=== PATIENT | female | born 1955 | race Caucasian/White ===

== ENCOUNTER → 2021-06-08 12:38 | Outpatient (BNVA) | payer OTHER, SELFPAY | PROVIDERS: PCP Internal Medicine; Referring Provider Internal Medicine; Visit Provider Internal Medicine | DX: I25.10 Atherosclerotic heart disease of native coronary artery without angina pectoris (principal); E78.5 Hyperlipidemia, unspecified; R03.0 Elevated blood-pressure reading, without diagnosis of hypertension; F17.200 Nicotine dependence, unspecified, uncomplicated | CPT/HCPCS: 93005; 99212 ==

== ENCOUNTER 2022-06-18 05:20 | Emergency (ER) | payer OTHER, SELFPAY ==
[2022-06-18 05:29] VITALS: BP 156/54; PULSE 74; RESP 16; TEMP 36.5; O2SAT 98; BMI 21.7
[2022-06-18 07:29] VITALS: BP 154/50; PULSE 70; RESP 18; O2SAT 98
--- NOTE | 2022-06-18 07:35 | ED_ITS ---
HPI - General Adult General Chief complaint: Ear Problems Stated complaint: ear infection Time Seen by Provider: 06/18/22 07:02 Source: patient Mode of arrival: ambulatory History of Present Illness HPI narrative: 66-year-old female with presentation for right shoulder /base of neck pain and patient states that she rests on her right arm and has not been very mobile for the past 2 weeks as she was recently ill. She denies that this pain is been associated with any falls, fevers, chills, difficulty breathing or chest pain / palpitations. In addition, she denies any ear pain or throat pain. Related Data Home Medications Medication Instructions Recorded Confirmed aspirin 81 mg chewable tablet 81 mg PO DAILY 06/08/21 06/08/21 levothyroxine 75 mcg tablet 75 mcg PO DAILY 06/08/21 06/08/21 (Euthyrox) venlafaxine 225 mg tablet,extended 225 mg PO DAILY 06/08/21 06/08/21 release 24 hr zolpidem 5 mg tablet 5 mg PO BEDTIME PRN 06/08/21 06/08/21 Previous Rx's Medication Instructions Recorded ezetimibe 10 mg tablet 10 mg PO DAILY 90 days #90 tabs 03/27/21 metoprolol succinate 25 mg 25 mg PO DAILY 90 days #90 tabs 08/14/21 tablet,extended release 24 hr atorvastatin 80 mg tablet 80 mg PO DAILY #90 caps 12/28/21 cyclobenzaprine 5 mg tablet 5 mg PO BEDTIME PRN muscle spasm 06/18/22 #3 tabs Allergies Allergy/AdvReac Type Severity Reaction Status Date / Time No Known Allergies Allergy Verified 06/08/21 12:55 Review of Systems Review of Systems: Pertinent positives and negatives as stated in HPI 10 point review of systems otherwise negative. [facility] Past Medical History Source: nursing notes reviewed Medical History Atherosclerotic cardiovascular disease Smoking Surgical History H/O heart artery stent Family History Family History Father No problems noted. Mother No problems noted. Unknown Diabetes Social History Social History Alcohol intake: never Patient Tobacco Use Status: Current everyday Tobacco user Cigarettes Per Day: 10 Years Smoked: 30 +/- Use of substances other than those prescribed or required for medical reasons: No Advance Directives: No Advance Directives Information Provided: No Physical Exam ED Vital Signs: Vital Signs - 24 hr 06/18/22 05:29 06/18/22 07:29 Temperature 97.7 F Pulse Rate 74 70 Respiratory Rate 16 18 Blood Pressure 156/54 H 154/50 H Pulse Oximetry 98 98 Oxygen Delivery Method Room Air Room Air BMI result Body Mass Index 21.7 VITAL SIGNS: Reviewed. GENERAL: Well developed, well nourished, in no acute distress. HEAD: Normocephalic/atraumatic EYES: PERRLA, EOMI EARS: Ext canals without abnormality, TMs non-bulging and non-erythematous NOSE: Nares patent bilateral OROPHARYNX: no oral lesions noted, posterior pharynx clear and non-erythematous without noted tonsillar enlargement/erythema/exudates NECK: Supple, no adenopathy,No midline cervical spine tenderness, there is obvious muscle spasm as the right trapezius meets the right base of the neck LUNGS: Normal breath sounds. No adventitious sounds or accessory muscle use. SpO2<98>; CHEST WALL: No tenderness to palpation/ crepitus/deformity noted CARDIOVASCULAR: Regular rate and rhythm without noted murmurs ABDOMEN: Soft, non-tender, non-distended with bowel sounds. MUSCULOSKELETAL: No tenderness, deformities, or effusions noted on gross inspection, otherwise full range of motion at the right shoulder. EXTREMITIES: No cyanosis, clubbing or edema. SKIN: Inspection of the skin reveals no rashes NEUROLOGIC: Alert and oriented x 4. Strength and sensation to light touch were grossly intact x 4. Course Course Course Narrative: 66-year-old female with history and clinical presentation most consistent with muscle spasm. This is an atraumatic pain without evidence of head/ neck/chest wall pathology, no evidence to suggest underlying infection and no evidence to suggest a COPD/ bronchitis/cardiac etiology. Patient was provided with medications for her discomfort and discharged home in stable condition with instructions to follow-up with her primary care provider. Discharge Plan Discharge Clinical Impression: Muscle spasm, Musculoskeletal pain Patient Disposition: Home, Self-Care Instructions: Musculoskeletal Pain (ED), Muscle Spasm (ED) Additional Instructions: 1. Tylenol 1000 mg, orally, every 6 hours as needed for pain control. Do not exceed 4000 mg within 24 hours. 2. Recommend [id number] lidocaine patch, apply to area of maximal tenderness as directed on the outside packaging. 3. Continue to move your shoulder and neck gently to prevent further spasming and stiffness. 4. Follow-up with your primary care provider in the next 1-2 days for re- evaluation. Return to the ER for worsening symptoms. Prescriptions: New cyclobenzaprine 5 mg tablet 5 mg PO BEDTIME PRN (Reason: muscle spasm) Qty: 3 0RF No Action ezetimibe 10 mg tablet 10 mg PO DAILY 90 Days Qty: 90 4RF metoprolol succinate 25 mg tablet extended release 24 hr 25 mg PO DAILY 90 Days Qty: 90 3RF atorvastatin 80 mg tablet 80 mg PO DAILY Qty: 90 3RF zolpidem 5 mg tablet 5 mg PO BEDTIME PRN venlafaxine 225 mg tablet extended release 24hr 225 mg PO DAILY levothyroxine [Euthyrox] 75 mcg tablet 75 mcg PO DAILY aspirin 81 mg tablet,chewable 81 mg PO DAILY
[2022-06-18] MEDS: Acetaminophen 325 MG TABLET 975 MG PO (08:01)
[2022-06-18] MEDS: Ibuprofen 400 MG TABLET PO (08:02)
[2022-06-18] MEDS: Lidocaine 4 % Patch ADH..PATCH 1 PATCH TRANSDERMA (08:02)
== END 2022-06-18 08:06 | disposition home or self-care (01) ==
PROVIDERS: Emergency Provider Student in an Organized Health Care Education/Training Program
DX: M62.838 Other muscle spasm (principal); M79.18 Myalgia, other site; M54.2 Cervicalgia; E78.5 Hyperlipidemia, unspecified; F17.210 Nicotine dependence, cigarettes, uncomplicated; Z79.82 Long term (current) use of aspirin; Z79.02 Long term (current) use of antithrombotics/antiplatelets; Z79.899 Other long term (current) drug therapy
CPT/HCPCS: 99283; 99284

== ENCOUNTER → 2022-07-25 14:41 | Outpatient (BNVA) | payer OTHER, SELFPAY | PROVIDERS: PCP Internal Medicine; Visit Provider Internal Medicine | DX: I25.10 Atherosclerotic heart disease of native coronary artery without angina pectoris (principal); E78.5 Hyperlipidemia, unspecified; F17.210 Nicotine dependence, cigarettes, uncomplicated | CPT/HCPCS: 93005; 99212 ==

== ENCOUNTER → 2022-07-30 14:36 | Outpatient (REF) | payer OTHER, SELFPAY ==
--- NOTE | 2022-07-30 14:38 | CA_ITS ---
Transthoracic Echocardiogram Patient (Last, First, Middle): Selin Malagon, Gender: Female Date of : 1955 Age: 66 Procedure Date: 07/30/2022 Procedure Type: Transthoracic Echocardiogram Location: OP Height: 345.44 cm Weight: 63.05 kg BSA: 2.89 m2 Heart Rate: bpm BP: 158 / 64 mmHg Parking Regulation Enforcement Officer: ELIZABETH Referring MD: Juan Jose Jones MD Symptoms: I25.10 - Atherosclerotic heart disease of [place] coronary artery without... Study Quality: Adequate ECG Rhythm: Sinus Conclusions: - The left ventricular systolic function is normal. The calculated ejection fraction is 57% by biplane method. - Evidence suggests grade II (moderate) diastolic dysfunction. - The basal inferior and basal inferoseptal segments are hypokinetic. - Aortic valve sclerosis but no significant stenosis. - There is mild mitral annular calcification. Findings Left Ventricle Normal left ventricular cavity size. The left ventricular systolic function is normal. The calculated ejection fraction is 57% by biplane method. There is evidence of regional wall motion abnormalities. E/E prime ratio is between 8 and 15 consistent with indeterminate filling pressures. Evidence suggests grade II (moderate) diastolic dysfunction. There is mild septal asymmetric hypertrophy. LV peak GLS -17.7%. Wall Motion Rest Echo Findings The basal inferior and basal inferoseptal segments are hypokinetic. Right Ventricle Mildly increased right ventricular cavity size. There is normal right ventricular systolic function. Atria The left atrium is moderately dilated. The right atrium is normal in size. Aortic Valve There is a normal trileaflet aortic valve. There is mild calcification of the aortic valve. There is no aortic valve regurgitation. No significant aortic stenosis. Mitral Valve There is mild mitral annular calcification. There is mild mitral valve regurgitation. There is no mitral valve stenosis. Pulmonic Valve The pulmonic valve is likely normal. Tricuspid Valve Normal tricuspid valve structure. There is mild tricuspid valve regurgitation. There is no evidence of pulmonary hypertension. Great Vessels The asc aorta and aortic arch are normal in size. Venous The inferior vena cava is normal in size and collapses greater than 50% with inspiration. Pericardium/Pleural There is no evidence of pericardial effusion. Prior Study Comparison Changes noted compared to prior study dated: 06/03/2020. Progression diastolic dysfunction. Increase in left atrial size. Measurements 2D Linear Measurements IVSd: 1.10 0.6-0.9/0.6-1.0 cm LVIDd: 4.67 3.9-5.3/4.2-5.9 cm LVIDd Index: 1.61 2.4-3.2/2.2-3.1 cm/m2 LVIDs: 3.31 2.0-3.6 cm LVPWd: 1.00 0.7-1.1 cm LA Diam: 3.90 2.7-3.8/3.0-4.0 cm LAIDs Index: 1.35 1.5-2.3 cm/m2 LV Mass: 216.06 67-162/88-224 g LV Mass Index: 74.65 43-95/49-115 g/m2 LVOT Diam: 2.00 3.0+(-)1.3 cm 2D Systolic Function EF 4C: 54.00 >55% EF 2C: 58.50 >55% EF BiP: 57.10 >55% Mitral Valve MV Pk E: 1.16 MV PK A: 0.95 MV Decel Time: 231.00 E/A: 1.20 E'Lateral: 9.03 E'Medial: 6.74 E/E' Med: 17.20 E/E' Lat: 12.80 PHT: 68.00 MVA PHT: 3.24 Decel [place]: 5.01 Aortic Valve AoV Pk Dean: 2.19 AoV Mn Dean: 1.50 AoV VTI: 0.53 AoV Pk Grad: 19.00 Aov Mn Grad: 10.00 KANDACE Cont.VTI: 1.84 LVOT LVOT Pk Dean: 1.40 LVOT Mn Dean: 0.87 LVOT VTI: 0.31 LVOT Pk Grad: 8.00 LVOT Mn Grad: 3.00 LVOT Diam: 2.00 LVOT Area: 3.14 Diastolic Function MV Pk E: 1.16 MV Pk A: 0.95 E/A: 1.20 E'Medial: 6.74 E/E' Med: 17.20 E' Laterial: 9.03 E/E' Lat: 12.80 Right Ventricle TAPSE (mm): 28.80 TVS' Dean: 12.40 Tricuspid Valve TR Pk Dean: 2.72 TR Pk Grad: 30.00 RA Press: 3.00 RVSP: 33.00 Great Vessels Aorta Sinus of Valsalva: 2.61 2.0-3.[address] [place]: 2.10 1.7-3.4 cm Ao Asc: 2.60 2.1-3.4 cm Ao Arch: 2.80 Updated in Other Vendor System with Status of Final Juan Jose Jones MD electronically signed on 07/31/2022 4:13:55 PM with status of Final
== END ==
LOC: HO.CARD 14:36
PROVIDERS: Visit Provider Internal Medicine
DX: I25.10 Atherosclerotic heart disease of native coronary artery without angina pectoris (principal)
CPT/HCPCS: 93306; 93356

== ENCOUNTER → 2022-08-07 09:43 | Outpatient (REF) | payer OTHER, SELFPAY ==
--- NOTE | ~2022-08-07 | NM_ITS ---
Lexiscan Myocardial perfusion study Indication: Coronary artery disease, assess for ischemia Technique: The patient was brought in for a Lexiscan perfusion study on 08/07/2022 and was injected 0.4 mg of Lexiscan intravenously. Within a minute of this injection 25 mCi of sestamibi was given intravenously. Images were obtained using the SPECT gamma camera interlaced with the gating device. Images were obtained in supine position. Resting perfusion study was performed on 08/08/2022. Patient was administered 25 mCi of sestamibi intravenously at rest. Images were then obtained in supine position. Images were processed with the software and compared side to side in short axis, horizontal long axis and vertical long axis views. Total DLP 72mGy-cm. Findings: Raw acquisition reviewed. The stress perfusion study showed mildly diminished tracer uptake along the inferior wall. With CT attenuation correction, there is significant improvement suggestive of diaphragmatic attenuation artifact. The gated study shows normal LV systolic function with calculated LVEF of 54%. LV cavity is normal in size. The gated study shows normal wall thickening and contraction of segments. Resting study shows no significant perfusion abnormality. Gating at rest reveals normal wall motion with ejection fraction at 55%. The findings are consistent with mild reversible inferior defect possibly from diaphragmatic attenuation artifact. Less likely ischemia. NM/NM anthony perf SPECT rest & str Impression: 1. Myocardial perfusion imaging study shows no clear evidence of any ischemia or infarction. Mild reversible inferior defect suspected to be from diaphragmatic attenuation artifact. 2. Gated LVEF is 54% during stress and 55% during rest. 3. Transient ischemic dilatation not present. EKG component of the test reported separately.
--- NOTE | 2022-08-07 09:47 | CA_ITS ---
Acquisition Time: 2022-08-07 10:04:19 Total Exercise Time: 00:02:00 Test Indications: CP Medications: SEE CHART Protocol: LEXISCAN Max HR: 114 BPM 73% of Pred: 156 BPM Max BP: 132/068 mmHG Max Work Load: 1.0 METS Pharmacological stress test with Lexiscan injection, while sitting and kicking her legs, with mild sob, no chest discomfort, without arrythmia, with normotensive response to injection, with nondiagnostic EKG for ischemia. Nuclear images pending. Test reviewed with Dr Mcdaniel. Referred By: Juan Jose Jones Overread By: ERIC SOSA
== END ==
LOC: HO.CARD 09:43
PROVIDERS: Visit Provider Internal Medicine
DX: I25.10 Atherosclerotic heart disease of native coronary artery without angina pectoris (principal)
CPT/HCPCS: 78452; 93017; A9500; J0280; J2785

== ENCOUNTER 2022-10-23 10:51 | Outpatient (REF) | payer MEDICARE, SELFPAY ==
--- NOTE | ~2022-10-23 | XR_ITS ---
EXAMINATION: XR CHEST 2 VIEWS CLINICAL INFORMATION: Shortness of breath. COMPARISON: Chest radiographs dated 05/29/2017. TECHNIQUE: Frontal and lateral views of the chest were obtained. FINDINGS: The heart, great vessels, pulmonary vasculature and mediastinum are normal. The lungs show no focal infiltrate, effusion or pneumothorax. There is mild right apical pleural thickening. There is no acute osseous abnormality. XR/XR chest 2V IMPRESSION: No active cardiopulmonary disease.
[2022-10-23 12:53] LABS: Mean Corpuscular HGB Conc 23.9 g/dl (31.0-35.0); PLT CLUMP 1; Red Blood Count 3.27 X10*6/uL (4.20-5.50); Red Cell Distribution Width 21.8 % (11.0-16.0)
[2022-10-23 12:57] LABS: B Type Natriuretic Peptide 84 pg/mL (<100)
[2022-10-23 13:21] LABS: Mean Corpuscular Volume 62.7 fL (80.0-98.0); NRBC Pct Auto 1.7 /100WBC (0.0-0.2)
[2022-10-23 13:24] LABS: Hemoglobin 4.9 g/dl (12.0-16.0); White Blood Count 4.8 X10*3/uL (4.8-10.8)
[2022-10-23 13:25] LABS: Hematocrit 20.5 % (37.0-47.0)
[2022-10-23 13:31] LABS: Alanine Aminotransferase 9 U/L (0-31); Alkaline Phosphatase 138 U/L (39-117); Anion Gap 13 (12-20); Aspartate Amino Transferase 16 U/L (5-31); Bilirubin Total 0.6 mg/dL (0.0-1.0); Blood Urea Nitrogen 11 mg/dL (9-16); Calcium 8.6 mg/dL (8.4-10.2); Carbon Dioxide 23 mmol/L (22-29); Chloride 110 mmol/L (96-108); Cholesterol 100 mg/dL; Estimated Glomerular Filt Rate > 60; Glucose Random 96 mg/dL (60-115); HDL Cholesterol 29 mg/dL; LDL Cholesterol Calculated 60 mg/dl; Potassium 4.7 mmol/L (3.3-5.1); Sodium 141 mmol/L (135-145); Total Protein 6.7 g/dL (6.5-8.0); Triglycerides 59 mg/dL
== END 2022-10-23 10:52 | disposition home or self-care (01) ==
LOC: HO.XRAY 10:51
PROVIDERS: PCP Internal Medicine; Referring Provider Internal Medicine; Visit Provider Internal Medicine
DX: R06.02 Shortness of breath (principal); I25.10 Atherosclerotic heart disease of native coronary artery without angina pectoris; I50.9 Heart failure, unspecified; E78.5 Hyperlipidemia, unspecified; F17.200 Nicotine dependence, unspecified, uncomplicated; Z71.6 Tobacco abuse counseling
CPT/HCPCS: 36415; 71046; 80053; 80061; 83880; 85027; 99212

== ENCOUNTER 2022-10-23 14:06 | Inpatient (IN) | payer MEDICARE, MEDICAID, SELFPAY ==
[2022-10-23] VITALS (10 sets, daily range): BP systolic 144–167; BP diastolic 40–72; PULSE 61–86; RESP 15–20; TEMP 36.4–37.2; O2SAT 97–100; BMI 22.8
--- NOTE | 2022-10-23 14:08 | ED.RECABL ---
HPI - Recheck/Abnormal Lab/Rx General Chief Complaint: Recheck/Abnormal Lab/Rx <Zuly Villanueva CNP - Last Filed: 10/23/22 14:16> Stated Complaint: Abnormal labs <Zuly Villanueva CNP - Last Filed: 10/23/22 14:16> Time Seen by Provider: 10/23/22 14:12 <Zuly Villanueva CNP - Last Filed: 10/23/22 14:16> Source: patient <Jonny Hollis DO - Last Filed: 10/23/22 14:58> Mode of arrival: ambulatory <Jonny Hollis DO - Last Filed: 10/23/22 14:58> Limitations: no limitations <Jonny Hollis DO - Last Filed: 10/23/22 14:58> History of Present Illness HPI narrative: 66 year old female presented to her PCP for weakness routine blood work done and showed she was profoundly anemic. She denies blood stools black stools. Denies having a blood transfusion in the past. She denies cough fever chills chest pain <Jonny Hollis DO - Last Filed: 10/23/22 14:58> MD complaint: other <Jonny Hollis DO - Last Filed: 10/23/22 14:58> Related Data Home Medications: Home Medications Medication Instructions Recorded Confirmed aspirin 81 mg chewable tablet 81 mg PO DAILY 06/08/21 10/23/22 levothyroxine 75 mcg tablet 75 mcg PO DAILY 06/08/21 10/23/22 (Euthyrox) venlafaxine 225 mg tablet,extended 225 mg PO DAILY 06/08/21 10/23/22 release 24 hr zolpidem 5 mg tablet 5 mg PO BEDTIME PRN 06/08/21 10/23/22 Previous Rx's Medication Instructions Recorded atorvastatin 80 mg tablet 80 mg PO DAILY #90 caps 12/28/21 cyclobenzaprine 5 mg tablet 5 mg PO BEDTIME PRN muscle spasm 06/18/22 #3 tabs ezetimibe 10 mg tablet 10 mg PO DAILY #90 tabs 07/02/22 metoprolol succinate 25 mg 25 mg PO DAILY #90 tabs 07/23/22 tablet,extended release 24 hr <Zuly Villanueva CNP - Last Filed: 10/23/22 14:16> Allergies/Adverse Reactions: Allergies Allergy/AdvReac Type Severity Reaction Status Date / Time No Known Allergies Allergy Verified 10/23/22 14:11 <Zuly Villanueva CNP - Last Filed: 10/23/22 14:16> Review of Systems Review of Systems: Review of systems: General: Weakness Patient denies any fever chills recent illness or falls Musculoskeletal: Denies back pain or body aches or other injuries HEENT: denies headache, runny nose, ear pain Respiratory: denies shortness of breath, cough Cardiovascular: no chest pain or palpitations : denies dysuria, frequency Abdomen: no nausea vomiting denies abdominal pain Extremities: no swelling, no pain Skin: no diaphoresis <Jonny Hollis DO - Last Filed: 10/23/22 14:58> Yes all other systems are reviewed and are negative <Jonny Hollis DO - Last Filed: 10/23/22 14:58> [facility] Past Medical History Medical History: Medical History Atherosclerotic cardiovascular disease Smoking <Zuly Villanueva CNP - Last Filed: 10/23/22 14:16> Surgical History: Surgical History H/O heart artery stent <Zuly Villanueva CNP - Last Filed: 10/23/22 14:16> Family History Family History: Family History Father No problems noted. Mother No problems noted. Unknown Diabetes <Zuly Villanueva CNP - Last Filed: 10/23/22 14:16> Social History Social History: Social History Alcohol intake: never Patient Tobacco Use Status: Current everyday Tobacco user Cigarettes Per Day: 10 Years Smoked: 30 +/- Advance Directives: No Advance Directives Information Provided: Yes <Zuly Villanueva CNP - Last Filed: 10/23/22 14:16> Physical Exam Vital Signs: Vital Signs: Last Vital Signs Temp 97.5 F 10/23/22 14:08 Pulse 86 10/23/22 14:08 Resp 18 10/23/22 14:08 BP 150/47 H 10/23/22 14:08 Pulse Ox 100 10/23/22 14:08 O2 Del Method 10/23/22 14:08 BMI result Body Mass Index 22.8 <Zuly Villanueva CNP - Last Filed: 10/23/22 14:16> Vital Signs: Last Vital Signs Temp 97.5 F 10/23/22 14:08 Pulse 86 10/23/22 14:08 Resp 18 10/23/22 14:08 BP 150/47 H 10/23/22 14:08 Pulse Ox 100 10/23/22 14:08 O2 Del Method 10/23/22 14:08 BMI result Body Mass Index 22.8 <Jonny Hollis DO - Last Filed: 10/23/22 14:58> General: Well-appearing well-nourished in no signs of distress HEENT: Normocephalic atraumatic Neck: No signs of JVD, no masses no tenderness or lymphadenopathy Cardiovascular: Regular rate and rhythm Respiratory: Clear to auscultation bilaterally Abdomen: Soft nontender no masses rectal exam performed guia negative customer quality engineer confirmed. Extremities: Normal pedal pulses no signs of edema Skin: Dry warm no rashes Back: No tenderness full ROM <Jonny Hollis DO - Last Filed: 10/23/22 14:58> Course Course Course Narrative: This is an RME: Additional HPI, ROS, PE not included below will be deferred to primary provider. Patient is a 66 year old female who presents to the emergency department for evaluation of abnormal labs. 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 Denies rectal bleeding, hematuria, vaginal bleeding, obvious sources of bleeding, denies anticoagulant usage. Denies any recent injury, fall, trauma. CBC revealing microcytic anemia hemoglobin 4.9, hematocrit 20.5, plt TNP. She does dose that she has been feeling weak over the past few months. Denies any past history of anemia or blood transfusions. 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 Hollis made aware of patient, labs; Type and screen, EKG, occult stool <Zuly Villanueva CNP - Last Filed: 10/23/22 14:16> Medications Administered Generic Name Dose Route Start Last Admin Trade Name Freq PRN Reason Stop Dose Admin Sodium Chloride 1,000 mls @ 999 mls/hr 10/23/22 14:15 10/23/22 14:50 Ns IV 10/23/22 15:15 999 mls/hr .Q1H1M MAIA Administration <Zuly Villanueva CNP - Last Filed: 10/23/22 14:16> Medications Administered Generic Name Dose Route Start Last Admin Trade Name Freq PRN Reason Stop Dose Admin Sodium Chloride 1,000 mls @ 999 mls/hr 10/23/22 14:15 10/23/22 14:50 Ns IV 10/23/22 15:15 999 mls/hr .Q1H1M MAIA Administration <Jonny Hollis DO - Last Filed: 10/23/22 14:58> Medical Decision Making Medical Decision Making [facility] Narrative: Concern for severe anemia Patient consented for blood transfusion I went over the risks and benefits she was agreeable. I type and crossed her for two units. <Jonny Hollis DO - Last Filed: 10/23/22 14:58> Differential Diagnosis Differential Diagnoses: The differential diagnosis associated with the presentation includes <Jonny Hollis DO - Last Filed: 10/23/22 14:58> Admission/Observation Consideration of admission/observation: Escalation of care including admission/observation considered <Jonny Hollis DO - Last Filed: 10/23/22 14:58> Consult Healthcare Provider Management of the patient was discussed with: Hospitalist <Jonny Hollis DO - Last Filed: 10/23/22 14:58> Dr. Carvalho <Jonny Hollis DO - Last Filed: 10/23/22 14:58> Lab Data [facility] Lab Attestation statement: I reviewed the patient's lab results. <Jonny Hollis DO - Last Filed: 10/23/22 14:58> Result Diagrams: 10/23/22 14:31 10/23/22 14:31 <Zuly Villanueva CNP - Last Filed: 10/23/22 14:16> Labs: Lab Results 10/23/22 10/23/22 10/23/22 Range/Units 14:31 14:31 14:31 WBC 5.2 (4.8-10.8) X10*3/uL RBC 3.05 L (4.20-5.50) X10*6/uL Hgb 4.6 L* (12.0-16.0) g/dl Hct 19.0 L* (37.0-47.0) % MCV 62.3 L (80.0-98.0) fL MCH 15.1 L (27.0-33.0) pg MCHC 24.2 L (31.0-35.0) g/dl RDW 21.5 H (11.0-16.0) % Plt Count 245 (160-400) X10*3/uL MPV 9.1 L (9.4-12.3) fL Immature Gran % (Auto) 0.4 (0.0-0.4) % Neut % (Auto) 51.3 (45-73) % Lymph % (Auto) 35.9 (20-40) % [place] % (Auto) 12.4 H (2-11) % Eos % (Auto) 0.0 (0-4) % Baso % (Auto) 0.0 (0-2) % Lymph # (Auto) 1.9 (1.2-4.9) X10*3/uL [place] # (Auto) 0.7 (0.1-1.2) X10*3/uL Eos # (Auto) 0.0 (0.0-0.4) X10*3/uL Baso # (Auto) 0.0 (0.0-0.2) X10*3/uL Abs Immat Gran (auto) 0.02 (0.00-0.03) X10*3/uL Absolute Neuts (auto) 2.7 (2.0-8.3) x10*3/uL Absolute Nucleated RBC 0.030 H (0.0-0.012) X10*3/uL Nucleated RBC % (auto) 0.6 H (0.0-0.2) /100WBC PT 12.8 (10.0-13.1) SEC INR 1.1 (0.9-1.1) Crossmatch See Detail <Zuly Villanueva, SERGIO - Last Filed: 10/23/22 14:16> Lab Results 10/23/22 10/23/22 10/23/22 Range/Units 14:31 14:31 14:31 WBC 5.2 (4.8-10.8) X10*3/uL RBC 3.05 L (4.20-5.50) X10*6/uL Hgb 4.6 L* (12.0-16.0) g/dl Hct 19.0 L* (37.0-47.0) % MCV 62.3 L (80.0-98.0) fL MCH 15.1 L (27.0-33.0) pg MCHC 24.2 L (31.0-35.0) g/dl RDW 21.5 H (11.0-16.0) % Plt Count 245 (160-400) X10*3/uL MPV 9.1 L (9.4-12.3) fL Immature Gran % (Auto) 0.4 (0.0-0.4) % Neut % (Auto) 51.3 (45-73) % Lymph % (Auto) 35.9 (20-40) % [place] % (Auto) 12.4 H (2-11) % Eos % (Auto) 0.0 (0-4) % Baso % (Auto) 0.0 (0-2) % Lymph # (Auto) 1.9 (1.2-4.9) X10*3/uL [place] # (Auto) 0.7 (0.1-1.2) X10*3/uL Eos # (Auto) 0.0 (0.0-0.4) X10*3/uL Baso # (Auto) 0.0 (0.0-0.2) X10*3/uL Abs Immat Gran (auto) 0.02 (0.00-0.03) X10*3/uL Absolute Neuts (auto) 2.7 (2.0-8.3) x10*3/uL Absolute Nucleated RBC 0.030 H (0.0-0.012) X10*3/uL Nucleated RBC % (auto) 0.6 H (0.0-0.2) /100WBC PT 12.8 (10.0-13.1) SEC INR 1.1 (0.9-1.1) Crossmatch See Detail <Jonny Hollis DO - Last Filed: 10/23/22 14:58> Independent Interpretation I performed an independent interpretation of an: EKG and Plain X-Ray <Jonny Hollis DO - Last Filed: 10/23/22 14:58> Interpretation: Rate 77 nsr normal intervals no signs of ischemia <Jonny Hollis DO - Last Filed: 10/23/22 14:58> Radiology Impression Discussion of test interpretation with radiology: I have reviewed the radiologist's reading. <Jonny Hollis DO - Last Filed: 10/23/22 14:58> Discharge Plan Discharge Clinical Impression: Anemia, Weakness <Zuly Villanueva CNP - Last Filed: 10/23/22 14:16> Patient Disposition: Admitted As Inpatient <Zuly Villanueva CNP - Last Filed: 10/23/22 14:16> Prescriptions: No Action atorvastatin 80 mg tablet 80 mg PO DAILY Qty: 90 3RF ezetimibe 10 mg tablet 10 mg PO DAILY Qty: 90 3RF metoprolol succinate 25 mg tablet extended release 24 hr 25 mg PO DAILY Qty: 90 1RF cyclobenzaprine 5 mg tablet 5 mg PO BEDTIME PRN (Reason: muscle spasm) Qty: 3 0RF zolpidem 5 mg tablet 5 mg PO BEDTIME PRN venlafaxine 225 mg tablet extended release 24hr 225 mg PO DAILY levothyroxine [Euthyrox] 75 mcg tablet 75 mcg PO DAILY aspirin 81 mg tablet,chewable 81 mg PO DAILY <Zuly Villanueva CNP - Last Filed: 10/23/22 14:16>
--- NOTE | 2022-10-23 14:10 | ECG_ITS ---
Test Reason : abnormal labs Blood Pressure : / mmHG Vent. Rate : 077 BPM Atrial Rate : 077 BPM P-R Int : 122 ms QRS Dur : 088 ms QT Int : 408 ms P-R-T Axes : 069 037 034 degrees QTc Int : 461 ms Normal sinus rhythm Nonspecific ST abnormality Abnormal ECG When compared with ECG of 25-JUN-2014 19:57, ST no longer elevated in Anterior leads Referred By: Zuly Villanueva Electronically Signed By:Lamont Mcdaniel
[2022-10-23 14:38] LABS: MANUAL DIFF FLAG NO
[2022-10-23 14:40] LABS: Imm Gran Abs Auto 0.02 X10*3/uL (0.00-0.03); Imm Gran Pct Auto 0.4 % (0.0-0.4); Lymphocytes Absolute Auto 1.9 X10*3/uL (1.2-4.9); Lymphocytes Percent Auto 35.9 % (20-40); Mean Corpuscular HGB Conc 24.2 g/dl (31.0-35.0); Mean Corpuscular Hemoglobin 15.1 pg (27.0-33.0); Mean Platelet Volume 9.1 fL (9.4-12.3); Monocytes Absolute Auto 0.7 X10*3/uL (0.1-1.2); Monocytes Percent Auto 12.4 % (2-11); NRBC Pct Auto 0.6 /100WBC (0.0-0.2); Neutrophils Absolute Auto 2.7 x10*3/uL (2.0-8.3); Neutrophils Percent Auto 51.3 % (45-73); Platelet Count 245 X10*3/uL (160-400); Red Blood Count 3.05 X10*6/uL (4.20-5.50); Red Cell Distribution Width 21.5 % (11.0-16.0); White Blood Count 5.2 X10*3/uL (4.8-10.8)
[2022-10-23 14:46] LABS: Hemoglobin 4.6 g/dl (12.0-16.0); INTERNATIONAL NORM RATIO 1.1 (0.9-1.1); Prothrombin Time 12.8 SEC (10.0-13.1)
[2022-10-23 14:47] LABS: Mean Corpuscular Volume 62.3 fL (80.0-98.0)
[2022-10-23] MEDS: 0.9 % Sodium Chloride 1,000 ML 999 ML IV (14:50)
[2022-10-23 15:12] LABS: Alanine Aminotransferase 10 U/L (0-31); Albumin Level 3.9 g/dL (3.5-5.0); Alkaline Phosphatase 135 U/L (39-117); Anion Gap 13 (12-20); Aspartate Amino Transferase 15 U/L (5-31); Bilirubin Direct 0.2 mg/dL (0.0-0.5); Bilirubin Total 0.5 mg/dL (0.0-1.0); Blood Urea Nitrogen 11 mg/dL (9-16); Calcium 8.6 mg/dL (8.4-10.2); Carbon Dioxide 22 mmol/L (22-29); Chloride 109 mmol/L (96-108); Estimated Glomerular Filt Rate > 60; Glucose Random 147 mg/dL (60-115); Lipase 22 U/L (8-78); Potassium 4.3 mmol/L (3.3-5.1); Sodium 140 mmol/L (135-145); Total Protein 6.6 g/dL (6.5-8.0)
--- NOTE | 2022-10-23 15:55 | P.HPHOSP_ITS ---
History of Present Illness Date of Service: 10/23/22 Attending physician on admission: Jeet Berry Chief Complaint: weakness 66 year old female with history of CAD s/p STEMI with LAD stenting in 2013, atherosclerosis, depression/anxiety/hypothyroidism, hypertension, hyperlipidemia presented to the ED earlier today from Cardiology office for evaluation of severe symptomatic anemia. The patient reports that for the last 3 months has been experiencing symptoms including weakness, fatigue, dyspnea on exertion, palpitations that has been significantly limiting her activities. There has also been some myalgia. She denies any bleeding episodes including melena, hematochezia, epistaxis, vaginal bleeding, or hematemesis. Her last colonoscopy was at age 52, 14 years ago, which she reports was benign. She has not had any recent blood work in the last year prior to that ordered this morning by Dr. Jones. H/H this a.m. 4.9/20.5 with MCV 62.7. Repeated in the ED with H/H 4.6/19.0% with MCV 60 2.3%. Vital signs stable. Renal function electrolyte levels normal. EKG showing NSR, rate [address] abnormality but no ST or depressions suggestive of acute ischemia. Chest x-ray appears negative for any acute cardiopulmonary abnormality upon my review. Patient be transfused 2 units packed red blood cells in the ED. She is also reporting URI symptoms including productive cough and right ear pain ongoing for 1 week. To be admitted for severe symptomatic anemia of unclear etiology. Review of Systems Review of Systems: General: No fevers, malaise, unintentional weight loss HEENT: No blurred vision, diplopia. No sore throat, nasal congestion, rhinorrhea, sinus pain, epistaxis. +right ear pain Cardiovascular: +palpitations. No chest pain or leg edema Respiratory: +sob, +stephenson, +cough. No wheezing GI: No abdominal pain, nausea, vomiting, diarrhea, constipation, melena, hematochezia : No dysuria, hematuria, increased urinary frequency, decreased urinary output MSK: No myalgia, back pain Neuro: No headaches, weakness, paresthesias Skin: No rashes or lesions [facility] Medical History Atherosclerotic cardiovascular disease Depression Elevated BP without diagnosis of hypertension Essential hypertension Hypothyroidism Other and unspecified hyperlipidemia Precordial chest pain Smoking ST elevation (STEMI) myocardial infarction Family History Father No problems noted. Mother No problems noted. Unknown Diabetes Surgical History H/O heart artery stent Social History Alcohol intake: never Patient Tobacco Use Status: Current someday Tobacco user Years Smoked: 30 +/- Advance Directives: No Advance Directives Information Provided: Yes Meds Allergies Allergy/AdvReac Type Severity Reaction Status Date / Time No Known Allergies Allergy Verified 10/23/22 14:11 Active Medications: Current Medications Pharmacy Consult (Consult Rx Perform Med Rec) 1 each MISCELLANE ONCE PRN PRN Reason: Consult order Home Medications Medication Instructions Recorded Confirmed Last Taken Type aspirin 81 mg chewable tablet 81 mg PO DAILY 06/08/21 10/23/22 10/22/22 History levothyroxine 75 mcg tablet 75 mcg PO DAILY 06/08/21 10/23/22 10/22/22 History (Euthyrox) venlafaxine 225 mg tablet,extended 225 mg PO DAILY 06/08/21 10/23/22 10/22/22 History release 24 hr zolpidem 5 mg tablet 5 mg PO BEDTIME 06/08/21 10/23/22 10/22/22 History Physical Exam Vital Signs and Narrative: Vital Signs: Last Vital Signs Temp 98.3 F 10/23/22 15:10 Pulse 73 10/23/22 15:10 Resp 18 10/23/22 15:10 BP 154/59 H 10/23/22 15:10 Pulse Ox 100 10/23/22 15:10 O2 Del Method 10/23/22 15:10 BMI result Body Mass Index 22.8 Constitutional - Awake and Alert, No apparent distress, pallor Eyes - PERRLA, EOMI Cardiovascular - S1S2, RRR, No edema Respiratory - Normal lung expansion, Normal respiratory effort, No respiratory distress, CTA bilaterally Gastrointestinal - NT / ND; +BS; No rebound or guarding Extremities - no calf tenderness bilaterally, no swelling Skin - Warm/Dry Neurological - Alert & oriented x3, CN II-XII in tact, 5/5 strength BUE and BLE Psychological - Appropriate affect Results Labs 10/23/22 14:31 10/23/22 14:31 Labs: Laboratory Results - last 24 hr 10/23/22 10/23/22 10/23/22 14:31 14:31 14:31 MCV 62.3 L MCH 15.1 L MCHC 24.2 L RDW 21.5 H Plt Count 245 MPV 9.1 L Immature Gran % (Auto) 0.4 Neut % (Auto) 51.3 Lymph % (Auto) 35.9 [place] % (Auto) 12.4 H Eos % (Auto) 0.0 Baso % (Auto) 0.0 Lymph # (Auto) 1.9 [place] # (Auto) 0.7 Eos # (Auto) 0.0 Baso # (Auto) 0.0 Abs Immat Gran (auto) 0.02 Absolute Neuts (auto) 2.7 Absolute Nucleated RBC 0.030 H Nucleated RBC % (auto) 0.6 H PT 12.8 INR 1.1 Anion Gap Estim Creat Clear Calc Estimated GFR Random Glucose Calcium Total Bilirubin Direct Bilirubin AST ALT Alkaline Phosphatase Total Protein Albumin Lipase Blood Type A Negative Antibody Screen NEGATIVE Crossmatch See Detail 10/23/22 14:31 MCV MCH MCHC RDW Plt Count MPV Immature Gran % (Auto) Neut % (Auto) Lymph % (Auto) [place] % (Auto) Eos % (Auto) Baso % (Auto) Lymph # (Auto) [place] # (Auto) Eos # (Auto) Baso # (Auto) Abs Immat Gran (auto) Absolute Neuts (auto) Absolute Nucleated RBC Nucleated RBC % (auto) PT INR Anion Gap 13 Estim Creat Clear Calc 76.0 Estimated GFR > 60 Random Glucose 147 H Calcium 8.6 Total Bilirubin 0.5 Direct Bilirubin 0.2 AST 15 ALT 10 Alkaline Phosphatase 135 H Total Protein 6.6 Albumin 3.9 Lipase 22 Blood Type Antibody Screen Crossmatch Assessment and Plan (1) Anemia: Status: Acute (2) Weakness: Status: Acute Plan 66 year old female with history of CAD s/p STEMI with LAD stenting in 2013, atherosclerosis, depression/anxiety/hypothyroidism, hypertension, hyperlipidemia admitted for severe symptomatic anemia. #Severe symptomatic iron deficiency anemia -H/H in ED 4.6/19.0%, MCV 62.3. EKG without acute ischemic changes -Add ferrous sulfate daily with vitamin c source -guaiac stool negative. Denies bleeding episodes -Appreciate GI input. ?chronic blood loss. No colonoscopy in 14 years. -Transfused 2 units PRBC in ED. Add addl unit with goal hgb>8 for endoscopy/colonoscopy tomorrow per gi -Follow H/H -Admit to telemetry #CAD/HLD -No anginal CP. EKG NSR, no BEN or depressions -Continue statin, zetia, asa, bb # hypothyroidism -continue levothyroxine # mood disorder -continue home meds # hypertension-reasonably controlled -continue home meds #URI symptoms -symptomatic management -negative for covid-19, influenza, rsv DVT prophylaxis-Lovenox Full code Patient requires inpatient stay at least 2 midnights for management of severe symptomatic microcytic anemia requiring blood transfusions, cardiac monitoring, close monitoring of H/H, and expert consultation into etiology of anemia. Time Spent With Patient Time: Total time managing care of this patient today ____ minutes. Quality Stroke Does the patient have a stroke diagnosis?: No VTE Prior VTE?: No VTE Risk Level:: Medical - moderate - high VTE Device Contraindication: Treatment Not Indicated VTE Drug Contraindication: N/A - Med Ordered
--- NOTE | 2022-10-23 16:20 | PHA.MEDREC ---
Pharmacy Consult ? Medication Reconciliation Pharmacy has completed the medication reconciliation.
[2022-10-23 16:22] LABS: Iron 9 mcg/dL (30-160); Percent Iron Saturation 2 % (15-50); Total Iron Binding Capacity 452 mcg/dL (228-428); Unsaturated Iron Binding 443 ug/dL
[2022-10-23 16:40] LABS: Ferritin 5 ng/mL (10-250)
[2022-10-23 16:55] LABS: Influenza A PCR NEGATIVE (Negative); Influenza B PCR NEGATIVE (Negative); Resp Syncy Virus RNA Qual PCR NEGATIVE (Negative); SARS COV2 PCR INHOUSE POSITIVE (Negative)
[2022-10-23] MEDS: Enoxaparin Sodium 40 MG/0.4 ML SYRINGE SUBCUT (17:03)
[2022-10-23] MEDS: bisacodyL 5 MG TABLET.DR 10 MG PO (17:37)
--- NOTE | 2022-10-23 18:41 | PC.NURSE ---
Pharmacy called for PEG
[2022-10-23] MEDS: PEG 3350/Na Sulf,Bicarb,Cl/KCL 4,000 ML SOLN.RECON 4000 ML PO (19:29)
--- NOTE | 2022-10-23 20:11 | P.CNGI_ITS ---
History of Present Illness Data of Consult Service Date: 10/24/22 Requesting physician: Oxana Monet Primary Care Provider: Lisandro Beal MD [facility] Reason for consult: anemia 66 year old female with history of CAD s/p STEMI with LAD stenting in 2013, atherosclerosis, depression/anxiety/hypothyroidism, hypertension, hyperlipidemia who I am seeing for assessment for anemis She was referred to ED from cardiology office after she had routine labs checked for symptoms including fatigue, SOB, exertional dyspnea and palpitations. Her HGB was found to be 4.9 g/dl, MCV 62, ferritin of 5 and this has improved with PRBC to around 7 g./dl She denies melena, hematochezia, epistaxis, vaginal bleeding, or hematemesis.?No chest pain or abdominal pain. Denies any nsaids apart from aspirin, not on any other anti coagulants she has been found to be pos for covid but denies vicky URTI sx, and her breathing is back to normal with the blood now on board Review of Systems Review of Systems: General: No fevers, malaise, unintentional weight loss HEENT: No blurred vision, diplopia. No sore throat, nasal congestion, rhinorrhea, sinus pain, epistaxis. Cardiovascular: +palpitations. No chest pain or leg edema Respiratory: +sob, +stephenson, +cough. No wheezing GI: No abdominal pain, nausea, vomiting, diarrhea, constipation, melena, hematochezia : No dysuria, hematuria, increased urinary frequency, decreased urinary output MSK: No myalgia, back pain Neuro: No headaches, weakness, paresthesias Skin: No rashes or lesions [facility] Past Medical History Medical History Atherosclerotic cardiovascular disease Depression Elevated BP without diagnosis of hypertension Essential hypertension Hypothyroidism Other and unspecified hyperlipidemia Precordial chest pain Smoking ST elevation (STEMI) myocardial infarction Family History Family History Father No problems noted. Mother No problems noted. Unknown Diabetes Surgical History Surgical History H/O heart artery stent Social History Social History Alcohol intake: never Patient Tobacco Use Status: Tobacco use Unknown Years Smoked: 30 +/- Use of substances other than those prescribed or required for medical reasons: No Advance Directives: No Advance Directives Information Provided: Yes Nutrition Risks: No Nutritional Risk Patient : No service: No Current occupational status: retired [employer] Allergies Allergy/AdvReac Type Severity Reaction Status Date / Time No Known Allergies Allergy Verified 10/23/22 14:11 Active Medications: Current Medications Acetaminophen (Acetaminophen 325 Mg Tablet) 650 mg PO Q6H PRN PRN Reason: Pain, Mild (Pain Scale 1-3) Ascorbic Acid (Ascorbic Acid 250 Mg Tablet) 250 mg PO DAILY [facility] Atorvastatin Calcium (Atorvastatin Calcium 80 Mg Tablet) 80 mg PO DAILY [facility] Docusate Sodium (Docusate Sodium 100 Mg Capsule) 100 mg PO DAILY PRN PRN Reason: Constipation Ezetimibe (Ezetimibe 10 Mg Tablet) 10 mg PO DAILY [facility] Enoxaparin Sodium (Enoxaparin Sodium 40 Mg/0.4 Ml Syringe) 40 mg SUBCUT Q24H [facility] Last Admin: 10/23/22 17:03 Dose: 40 mg Ferrous Sulfate (Ferrous Sulfate 324 Mg Tablet.Dr) 325 mg PO DAILY [facility] Levothyroxine Sodium (Levothyroxine Sodium 75 Mcg Tablet) 75 mcg PO DAILY@0600 [facility] Metoprolol Succinate (Metoprolol Succinate Er 25 Mg Tab.Er.24h) 25 mg PO DAILY [facility]; Protocol Ondansetron HCl (Ondansetron Hcl 4 Mg/2 Ml Vial) 4 mg IVPUSH Q8H PRN PRN Reason: Nausea and Vomiting Pharmacy Consult (Consult Rx Perform Med Rec) 1 each MISCELLANE ONCE PRN PRN Reason: Consult order Sodium Chloride (0.9 % Sodium Chloride Flush 3 Ml Syringe) 3 ml IVFLUSH QSHIFT [facility] Last Admin: 10/23/22 16:54 Dose: Not Given Venlafaxine HCl (Venlafaxine Hcl Er 75 Mg Cap.Er.24h) 225 mg PO DAILY [facility] Zolpidem Tartrate (Zolpidem Tartrate 5 Mg Tablet) 5 mg PO BEDTIME [facility] Home Medications Medication Instructions Recorded Confirmed Last Taken Type aspirin 81 mg chewable tablet 81 mg PO DAILY 06/08/21 10/23/22 10/22/22 History levothyroxine 75 mcg tablet 75 mcg PO DAILY 06/08/21 10/23/22 10/22/22 History (Euthyrox) venlafaxine 225 mg tablet,extended 225 mg PO DAILY 06/08/21 10/23/22 10/22/22 History release 24 hr zolpidem 5 mg tablet 5 mg PO BEDTIME 06/08/21 10/23/22 10/22/22 History Physical Exam Vital Signs: Vital Signs: Last Vital Signs Temp 98.1 F 10/23/22 16:45 Pulse 63 10/23/22 16:45 Resp 16 10/23/22 16:45 BP 144/43 H 10/23/22 16:45 Pulse Ox 97 10/23/22 15:51 O2 Del Method 10/23/22 15:51 BMI result Body Mass Index 22.8 EXAM: GENERAL: The patient is well developed and nontoxic. VITAL SIGNS:see workflow HEENT: Nonicteric sclerae, PERRLA, EOMI. Oropharynx clear. Moist mucous membranes. Conjunctivae are pale. No thyroid mass. CHEST: Chest wall is nontender. HEART: Regular rate and rhythm without murmurs. LUNGS: Clear to auscultation bilaterally. ABDOMEN: Soft, positive bowel sounds, nontender, no organomegaly.no flank tenderness SKIN: No rash, no excessive bruising, petechiae, or purpura. NEUROLOGIC: Cranial nerves II-XII intact without motor/sensory deficit. Psych- nml affect Results Labs 10/23/22 14:31 10/23/22 14:31 Labs: Short CBC 10/23/22 Range/Units 14:31 WBC 5.2 (4.8-10.8) X10*3/uL Hgb 4.6 L* (12.0-16.0) g/dl Hct 19.0 L* (37.0-47.0) % Plt Count 245 (160-400) X10*3/uL BMP 10/23/22 14:31 Sodium 140 Potassium 4.3 Chloride 109 H Carbon Dioxide 22 BUN 11 Creatinine 0.70 Calcium 8.6 Liver Function 10/23/22 Range/Units 14:31 Total Bilirubin 0.5 (0.0-1.0) mg/dL Direct Bilirubin 0.2 (0.0-0.5) mg/dL AST 15 (5-31) U/L ALT 10 (0-31) U/L Alkaline Phosphatase 135 H (39-117) U/L Albumin 3.9 (3.5-5.0) g/dL Assessment and Plan (1) Anemia: Qualifiers: Anemia type: iron deficiency Iron deficiency anemia type: chronic blood loss Qualified Code(s): D50.0 - Iron deficiency anemia secondary to blood loss (chronic) Status: Acute Plan 1/ iron def anemia, seems to be chronic based on her MCV< no recent numbers to compare with, ddx is wide incl but not limited to PUD< polyps, gastritis, malabsorption, neoplasia PLAN: 1/ EGD and colonoscopy today for further assessment Time Spent With Patient Time: Total time managing care of this patient today ____ minutes. Procedures Date of Service Date of Service: 10/24/22
--- NOTE | 2022-10-23 21:18 | PC.NURSE ---
Assumed care of pt. at 1900. At this time, 1st unit of blood running per TAR. Blood finished and was completed in TAR. 2nd unit of blood obtained per TAR and is now running. Pt. alert and oriented, with no complaints at this time. Will continue to monitor.
--- NOTE | 2022-10-23 21:59 | MHC.CM.PN ---
IMM 10/23. CM met with admitted patient with bed assignment pending. A&Ox4. Independent. Lives alone. Drives. No DME/services. Pfizer x4. Covid positive today 10/23. No HCP on file. HCP reviewed, completed and signed. Copies given. Uploaded into [facility] and [facility]. D/C plan: Home without services. Pt to arrange transport home. CM to follow for discharge needs.
--- NOTE | 2022-10-23 22:50 | PC.NURSE ---
2nd infusion of blood is running. Running slow to start, placed on pressure bag to obtain moderate drip. Pt. has ambien scheduled for 2100, pt. opting to take after blood has finished running. pt. has been up and down to bathroom since the golyte fluids. No distress noted and pt. states that she feels much better since the 1st unit of blood .
[2022-10-23] MEDS: Zolpidem Tartrate 5 MG TABLET PO (23:34)
[2022-10-23 23:48] LABS: Basophils Percent Auto 0.3 % (0-2); Eosinophils Percent Auto 0.2 % (0-4); Hematocrit 27.8 % (37.0-47.0); Hemoglobin 7.9 g/dl (12.0-16.0); Imm Gran Abs Auto 0.02 X10*3/uL (0.00-0.03); Imm Gran Pct Auto 0.3 % (0.0-0.4); Lymphocytes Absolute Auto 2.9 X10*3/uL (1.2-4.9); Lymphocytes Percent Auto 44.5 % (20-40); MANUAL DIFF FLAG SCAN; Mean Corpuscular HGB Conc 28.4 g/dl (31.0-35.0); Mean Corpuscular Hemoglobin 19.6 pg (27.0-33.0); Mean Corpuscular Volume 68.8 fL (80.0-98.0); Monocytes Absolute Auto 0.9 X10*3/uL (0.1-1.2); Monocytes Percent Auto 13.9 % (2-11); NRBC Pct Auto 0.6 /100WBC (0.0-0.2); Neutrophils Absolute Auto 2.7 x10*3/uL (2.0-8.3); Neutrophils Percent Auto 40.8 % (45-73); Platelet Count 246 X10*3/uL (160-400); Red Blood Count 4.04 X10*6/uL (4.20-5.50); Red Cell Distribution Width 25.7 % (11.0-16.0); SCAN SMEAR FLAG 1; White Blood Count 6.6 X10*3/uL (4.8-10.8)
[2022-10-23 23:49] LABS: PLT ABN DIST 1
[2022-10-23 23:55] LABS: SLIDE REVIEW VERIFIED
[2022-10-24] VITALS (7 sets, daily range): BP systolic 97–157; BP diastolic 37–88; PULSE 54–69; RESP 13–22; TEMP 2.2–37.2; O2SAT 96–99
[2022-10-24] MEDS: Levothyroxine Sodium 75 MCG TABLET PO (06:27)
[2022-10-24 06:36] LABS: MANUAL DIFF FLAG NO
[2022-10-24 06:49] LABS: Basophils Percent Auto 0.3 % (0-2); Eosinophils Percent Auto 0.1 % (0-4); Hematocrit 29.1 % (37.0-47.0); Hemoglobin 8.5 g/dl (12.0-16.0); Imm Gran Abs Auto 0.06 X10*3/uL (0.00-0.03); Imm Gran Pct Auto 0.9 % (0.0-0.4); Lymphocytes Absolute Auto 2.7 X10*3/uL (1.2-4.9); Lymphocytes Percent Auto 39.6 % (20-40); Mean Corpuscular HGB Conc 29.2 g/dl (31.0-35.0); Mean Corpuscular Hemoglobin 21.1 pg (27.0-33.0); Mean Corpuscular Volume 72.4 fL (80.0-98.0); Mean Platelet Volume 10.6 fL (9.4-12.3); Monocytes Absolute Auto 0.8 X10*3/uL (0.1-1.2); Monocytes Percent Auto 11.3 % (2-11); Neutrophils Absolute Auto 3.3 x10*3/uL (2.0-8.3); Neutrophils Percent Auto 47.8 % (45-73); Platelet Count 214 X10*3/uL (160-400); Red Blood Count 4.02 X10*6/uL (4.20-5.50); Red Cell Distribution Width 27.2 % (11.0-16.0); White Blood Count 6.8 X10*3/uL (4.8-10.8)
[2022-10-24 06:51] LABS: NRBC Pct Auto 1.3 /100WBC (0.0-0.2)
[2022-10-24 06:55] LABS: Anion Gap 11 (12-20); Blood Urea Nitrogen 9 mg/dL (9-16); Calcium 8.2 mg/dL (8.4-10.2); Carbon Dioxide 22 mmol/L (22-29); Chloride 114 mmol/L (96-108); Creatinine Clr Calc Pharmacy 91.7; Estimated Glomerular Filt Rate > 60; Glucose Random 86 mg/dL (60-115); Potassium 4.1 mmol/L (3.3-5.1); Sodium 143 mmol/L (135-145)
[2022-10-24] MEDS: 0.9 % Sodium Chloride Flush 3 ML SYRINGE IVFLUSH (08:23)
[2022-10-24] MEDS: Atorvastatin Calcium 80 MG TABLET PO (08:31)
[2022-10-24] MEDS: Metoprolol Succinate ER 25 MG TAB.ER.24H PO (08:31)
[2022-10-24] MEDS: Ezetimibe 10 MG TABLET PO (08:31)
--- NOTE | 2022-10-24 08:37 | PC.NURSE ---
GI and hospitalist in at bedside. Medications given per GI order. Patient remains NPO otherwise, awaiting time for procedure.
--- NOTE | 2022-10-24 10:08 | MHC.SHP ---
Pre-Procedural Eval Section A Date of Service: 10/24/22 The patient is an INPATIENT: Yes The History & Physical has been completed within 30 days and I have reviewed it.: Yes Section B Chief Complaint: Symptomatic anemia Allergies: Allergies Allergy/AdvReac Type Severity Reaction Status Date / Time No Known Allergies Allergy Verified 10/23/22 14:11 Plan Diagnosis/Plan: Unchanged I have reviewed the history and physical and performed a pertinent physical examination on my patient. No changes have occurred unless specified. Time Spent With Patient Time: Total time managing care of this patient today ____ minutes.
--- NOTE | 2022-10-24 11:04 | HO.PM.IMPN ---
Subjective Subjective Date of Service: 10/24/22 Interval History: cc: fatigue, anemia interval history:much improved Physical Exam Vital Signs: Vital Signs: Last Vital Signs Temp 98.6 F 10/24/22 07:39 Pulse 69 10/24/22 07:39 Resp 13 10/24/22 07:39 BP 133/45 L 10/24/22 07:39 Pulse Ox 96 10/24/22 07:39 O2 Del Method 10/24/22 07:39 BMI result Body Mass Index 22.8 General: AO X 3, no acute distress Resp: CTA bilateral, no accessory muscles used CVS: S1,S2,RRR GI: soft, non tender, non distended Neuro: motor grossly intact, alert Psych: appropriate affect, appropriate insight Objective Data Active Medications Acetaminophen (Acetaminophen 325 Mg Tablet) 650 mg PO Q6H PRN PRN Reason: Pain, Mild (Pain Scale 1-3) Ascorbic Acid (Ascorbic Acid 250 Mg Tablet) 250 mg PO DAILY [facility] Last Admin: 10/24/22 08:31 Dose: Not Given Documented By: ANNE-MARIE Non-Admin Reason: Physician Held Med Atorvastatin Calcium (Atorvastatin Calcium 80 Mg Tablet) 80 mg PO DAILY [facility] Last Admin: 10/24/22 08:31 Dose: 80 mg Documented By: ANNE-MARIE Docusate Sodium (Docusate Sodium 100 Mg Capsule) 100 mg PO DAILY PRN PRN Reason: Constipation Ezetimibe (Ezetimibe 10 Mg Tablet) 10 mg PO DAILY [facility] Last Admin: 10/24/22 08:31 Dose: 10 mg Documented By: ANNE-MARIE Enoxaparin Sodium (Enoxaparin Sodium 40 Mg/0.4 Ml Syringe) 40 mg SUBCUT Q24H [facility] Last Admin: 10/23/22 17:03 Dose: 40 mg Documented By: SUSY Ferrous Sulfate (Ferrous Sulfate 324 Mg Tablet.) 325 mg PO DAILY [facility] Last Admin: 10/24/22 08:32 Dose: Not Given Documented By: ANNE-MARIE Non-Admin Reason: Physician Held Med Levothyroxine Sodium (Levothyroxine Sodium 75 Mcg Tablet) 75 mcg PO DAILY@0600 [facility] Last Admin: 10/24/22 06:27 Dose: 75 mcg Documented By: [place] Metoprolol Succinate (Metoprolol Succinate Er 25 Mg Tab.Er.24h) 25 mg PO DAILY [facility]; Protocol Last Admin: 10/24/22 08:31 Dose: 25 mg Documented By: ANNE-MARIE Ondansetron HCl (Ondansetron Hcl 4 Mg/2 Ml Vial) 4 mg IVPUSH Q8H PRN PRN Reason: Nausea and Vomiting Pharmacy Consult (Consult Rx Perform Med Rec) 1 each MISCELLANE ONCE PRN PRN Reason: Consult order Sodium Chloride (0.9 % Sodium Chloride Flush 3 Ml Syringe) 3 ml IVFLUSH QSHIFT [facility] Last Admin: 10/24/22 08:23 Dose: 3 ml Documented By: ANNE-MARIE Venlafaxine HCl (Venlafaxine Hcl Er 75 Mg Cap.Er.24h) 225 mg PO DAILY [facility] Last Admin: 10/24/22 10:09 Dose: Not Given Documented By: ANNE-MARIE Non-Admin Reason: Physician Held Med Zolpidem Tartrate (Zolpidem Tartrate 5 Mg Tablet) 5 mg PO BEDTIME [facility] Last Admin: 10/23/22 23:34 Dose: 5 mg Documented By: LIZZYERT Labs 10/24/22 06:26 10/24/22 06:26 Labs: Laboratory Results - last 24 hr 10/23/22 10/23/22 10/23/22 14:31 14:31 14:31 MCV 62.3 L MCH 15.1 L MCHC 24.2 L RDW 21.5 H Plt Count 245 MPV 9.1 L Immature Gran % (Auto) 0.4 Neut % (Auto) 51.3 Lymph % (Auto) 35.9 [place] % (Auto) 12.4 H Eos % (Auto) 0.0 Baso % (Auto) 0.0 Lymph # (Auto) 1.9 [place] # (Auto) 0.7 Eos # (Auto) 0.0 Baso # (Auto) 0.0 Abs Immat Gran (auto) 0.02 Absolute Neuts (auto) 2.7 Absolute Nucleated RBC 0.030 H Nucleated RBC % (auto) 0.6 H Smear Tech's Comments PT 12.8 INR 1.1 Anion Gap Estim Creat Clear Calc Estimated GFR Random Glucose Calcium Iron TIBC % Saturation Unsat Iron Binding Ferritin Total Bilirubin Direct Bilirubin AST ALT Alkaline Phosphatase Total Protein Albumin Lipase Influenza Type A (PCR) Influenza Type B (PCR) RSV RNA Qual (PCR) SARS-CoV-2 RNA (RT-PCR) Blood Type A Negative Antibody Screen NEGATIVE Crossmatch See Detail 10/23/22 10/23/22 10/23/22 14:31 16:07 23:37 MCV 68.8 L D MCH 19.6 L MCHC 28.4 L RDW 25.7 H Plt Count 246 MPV 10.0 Immature Gran % (Auto) 0.3 Neut % (Auto) 40.8 L Lymph % (Auto) 44.5 H [place] % (Auto) 13.9 H Eos % (Auto) 0.2 Baso % (Auto) 0.3 Lymph # (Auto) 2.9 [place] # (Auto) 0.9 Eos # (Auto) 0.0 Baso # (Auto) 0.0 Abs Immat Gran (auto) 0.02 Absolute Neuts (auto) 2.7 Absolute Nucleated RBC 0.040 H Nucleated RBC % (auto) 0.6 H Smear Tech's Comments VERIFIED PT INR Anion Gap 13 Estim Creat Clear Calc 76.0 Estimated GFR > 60 Random Glucose 147 H Calcium 8.6 Iron 9 L TIBC 452 H % Saturation 2 L Unsat Iron Binding 443 Ferritin 5 L Total Bilirubin 0.5 Direct Bilirubin 0.2 AST 15 ALT 10 Alkaline Phosphatase 135 H Total Protein 6.6 Albumin 3.9 Lipase 22 Influenza Type A (PCR) NEGATIVE Influenza Type B (PCR) NEGATIVE RSV RNA Qual (PCR) NEGATIVE SARS-CoV-2 RNA (RT-PCR) POSITIVE A Blood Type Antibody Screen Crossmatch 10/24/22 10/24/22 06:26 06:26 MCV 72.4 L MCH 21.1 L MCHC 29.2 L RDW 27.2 H Plt Count 214 MPV 10.6 Immature Gran % (Auto) 0.9 H Neut % (Auto) 47.8 Lymph % (Auto) 39.6 [place] % (Auto) 11.3 H Eos % (Auto) 0.1 Baso % (Auto) 0.3 Lymph # (Auto) 2.7 [place] # (Auto) 0.8 Eos # (Auto) 0.0 Baso # (Auto) 0.0 Abs Immat Gran (auto) 0.06 H Absolute Neuts (auto) 3.3 Absolute Nucleated RBC 0.090 H Nucleated RBC % (auto) 1.3 H Smear Tech's Comments PT INR Anion Gap 11 L Estim Creat Clear Calc 91.7 Estimated GFR > 60 Random Glucose 86 Calcium 8.2 L Iron TIBC % Saturation Unsat Iron Binding Ferritin Total Bilirubin Direct Bilirubin AST ALT Alkaline Phosphatase Total Protein Albumin Lipase Influenza Type A (PCR) Influenza Type B (PCR) RSV RNA Qual (PCR) SARS-CoV-2 RNA (RT-PCR) Blood Type Antibody Screen Crossmatch Assessment and Plan (1) Anemia: Status: Acute (2) COVID-19: Status: Acute Plan 66 year old female with history of CAD s/p STEMI with LAD stenting in 2013, atherosclerosis, depression/anxiety/hypothyroidism, hypertension, presented with fatigue found to have severe symptomatic anemia. Severe symptomatic iron deficiency anemia hgb improved appropriately after 3 units prbc, monitor likely chronic blood loss plan for EGD/colono COVID 19 minimal symptoms, monitor CAD/HLD No anginal CP. EKG NSR, no BEN or depressions Continue statin, zetia, asa, bb hypothyroidism continue levothyroxine mood disorder effexor hypertension-reasonably controlled toprol DVT prophylaxis-Lovenox Full code reason for continued hospitalization:work up severe anemia Time Spent With Patient Time: Total time managing care of this patient today ____ minutes. Quality Stroke Does the patient have a stroke diagnosis?: No VTE Prior VTE?: No VTE Risk Level:: Medical - moderate - high VTE Device Contraindication: Treatment Not Indicated VTE Drug Contraindication: N/A - Med Ordered
--- NOTE | 2022-10-24 13:03 | HO.ANESPROP2 ---
[facility] Active Problems Active Problems: All Active Problems (Updated 10/24/22 @ 11:04 by Jeet Berry MD) COVID-19 (Acute) Anemia (Acute) Weakness (Acute) Past Medical History Medical History (Updated 10/24/22 @ 11:04 by Jeet Berry MD) Atherosclerotic cardiovascular disease COVID-19 Depression Elevated BP without diagnosis of hypertension Essential hypertension Hypothyroidism Other and unspecified hyperlipidemia Precordial chest pain Smoking ST elevation (STEMI) myocardial infarction Family History Family History Father No problems noted. Mother No problems noted. Unknown Diabetes Family history of problems with anesthesia: No Surgical History Surgical History H/O heart artery stent History of Problems with Anesthesia: No Social History Social History Alcohol intake: never Patient Tobacco Use Status: Tobacco use Unknown Years Smoked: 30 +/- Use of substances other than those prescribed or required for medical reasons: No Advance Directives: No Advance Directives Information Provided: Yes Nutrition Risks: No Nutritional Risk Patient : No service: No Current occupational status: retired [employer] Allergies Allergy/AdvReac Type Severity Reaction Status Date / Time No Known Allergies Allergy Verified 10/23/22 14:11 Active Medications: Current Medications Acetaminophen (Acetaminophen 325 Mg Tablet) 650 mg PO Q6H PRN PRN Reason: Pain, Mild (Pain Scale 1-3) Ascorbic Acid (Ascorbic Acid 250 Mg Tablet) 250 mg PO DAILY [facility] Last Admin: 10/24/22 08:31 Dose: Not Given Atorvastatin Calcium (Atorvastatin Calcium 80 Mg Tablet) 80 mg PO DAILY [facility] Last Admin: 10/24/22 08:31 Dose: 80 mg Docusate Sodium (Docusate Sodium 100 Mg Capsule) 100 mg PO DAILY PRN PRN Reason: Constipation Ezetimibe (Ezetimibe 10 Mg Tablet) 10 mg PO DAILY [facility] Last Admin: 10/24/22 08:31 Dose: 10 mg Enoxaparin Sodium (Enoxaparin Sodium 40 Mg/0.4 Ml Syringe) 40 mg SUBCUT Q24H [facility] Last Admin: 10/23/22 17:03 Dose: 40 mg Ferrous Sulfate (Ferrous Sulfate 324 Mg Tablet.Dr) 325 mg PO DAILY [facility] Last Admin: 10/24/22 08:32 Dose: Not Given Levothyroxine Sodium (Levothyroxine Sodium 75 Mcg Tablet) 75 mcg PO DAILY@0600 [facility] Last Admin: 10/24/22 06:27 Dose: 75 mcg Metoprolol Succinate (Metoprolol Succinate Er 25 Mg Tab.Er.24h) 25 mg PO DAILY [facility]; Protocol Last Admin: 10/24/22 08:31 Dose: 25 mg Ondansetron HCl (Ondansetron Hcl 4 Mg/2 Ml Vial) 4 mg IVPUSH Q8H PRN PRN Reason: Nausea and Vomiting Pharmacy Consult (Consult Rx Perform Med Rec) 1 each MISCELLANE ONCE PRN PRN Reason: Consult order Sodium Chloride (0.9 % Sodium Chloride Flush 3 Ml Syringe) 3 ml IVFLUSH QSHIFT [facility] Last Admin: 10/24/22 08:23 Dose: 3 ml Venlafaxine HCl (Venlafaxine Hcl Er 75 Mg Cap.Er.24h) 225 mg PO DAILY [facility] Last Admin: 10/24/22 10:09 Dose: Not Given Zolpidem Tartrate (Zolpidem Tartrate 5 Mg Tablet) 5 mg PO BEDTIME [facility] Last Admin: 10/23/22 23:34 Dose: 5 mg Home Medications Medication Instructions Recorded Confirmed Last Taken Type aspirin 81 mg chewable tablet 81 mg PO DAILY 06/08/21 10/23/22 10/22/22 History levothyroxine 75 mcg tablet 75 mcg PO DAILY 06/08/21 10/23/22 10/22/22 History (Euthyrox) venlafaxine 225 mg tablet,extended 225 mg PO DAILY 06/08/21 10/23/22 10/22/22 History release 24 hr zolpidem 5 mg tablet 5 mg PO BEDTIME 06/08/21 10/23/22 10/22/22 History Exam Exam Date and Time: October 24, 2022 1303 Height,Weight and Vital Signs: Height 5 ft 6 in Weight 64.41 kg Last Vital Signs Temp 98.6 F 10/24/22 07:39 Pulse 69 10/24/22 07:39 Resp 13 10/24/22 07:39 BP 133/45 L 10/24/22 07:39 Pulse Ox 96 10/24/22 07:39 O2 Del Method 10/24/22 07:39 Pertinent Lab Results Pertinent Lab Results: Laboratory Tests 10/23/22 10/23/22 10/23/22 14:31 14:31 14:31 WBC 5.2 RBC 3.05 L Hgb 4.6 L* Hct 19.0 L* MCV 62.3 L MCH 15.1 L MCHC 24.2 L RDW 21.5 H Plt Count 245 MPV 9.1 L Immature Gran % (Auto) 0.4 Neut % (Auto) 51.3 Lymph % (Auto) 35.9 [place] % (Auto) 12.4 H Eos % (Auto) 0.0 Baso % (Auto) 0.0 Lymph # (Auto) 1.9 [place] # (Auto) 0.7 Eos # (Auto) 0.0 Baso # (Auto) 0.0 Abs Immat Gran (auto) 0.02 Absolute Neuts (auto) 2.7 Absolute Nucleated RBC 0.030 H Nucleated RBC % (auto) 0.6 H Smear Tech's Comments PT 12.8 INR 1.1 Sodium Potassium Chloride Carbon Dioxide Anion Gap BUN Creatinine Estim Creat Clear Calc Estimated GFR Random Glucose Calcium Iron TIBC % Saturation Unsat Iron Binding Ferritin Total Bilirubin Direct Bilirubin AST ALT Alkaline Phosphatase Total Protein Albumin Lipase Influenza Type A (PCR) Influenza Type B (PCR) RSV RNA Qual (PCR) SARS-CoV-2 RNA (RT-PCR) Blood Type A Negative Antibody Screen NEGATIVE Crossmatch See Detail 10/23/22 10/23/22 10/23/22 14:31 16:07 23:37 WBC 6.6 RBC 4.04 L D Hgb 7.9 L D Hct 27.8 L D MCV 68.8 L D MCH 19.6 L MCHC 28.4 L RDW 25.7 H Plt Count 246 MPV 10.0 Immature Gran % (Auto) 0.3 Neut % (Auto) 40.8 L Lymph % (Auto) 44.5 H [place] % (Auto) 13.9 H Eos % (Auto) 0.2 Baso % (Auto) 0.3 Lymph # (Auto) 2.9 [place] # (Auto) 0.9 Eos # (Auto) 0.0 Baso # (Auto) 0.0 Abs Immat Gran (auto) 0.02 Absolute Neuts (auto) 2.7 Absolute Nucleated RBC 0.040 H Nucleated RBC % (auto) 0.6 H Smear Tech's Comments VERIFIED PT INR Sodium 140 Potassium 4.3 Chloride 109 H Carbon Dioxide 22 Anion Gap 13 BUN 11 Creatinine 0.70 Estim Creat Clear Calc 76.0 Estimated GFR > 60 Random Glucose 147 H Calcium 8.6 Iron 9 L TIBC 452 H % Saturation 2 L Unsat Iron Binding 443 Ferritin 5 L Total Bilirubin 0.5 Direct Bilirubin 0.2 AST 15 ALT 10 Alkaline Phosphatase 135 H Total Protein 6.6 Albumin 3.9 Lipase 22 Influenza Type A (PCR) NEGATIVE Influenza Type B (PCR) NEGATIVE RSV RNA Qual (PCR) NEGATIVE SARS-CoV-2 RNA (RT-PCR) POSITIVE A Blood Type Antibody Screen Crossmatch 10/24/22 10/24/22 06:26 06:26 WBC 6.8 RBC 4.02 L Hgb 8.5 L Hct 29.1 L MCV 72.4 L MCH 21.1 L MCHC 29.2 L RDW 27.2 H Plt Count 214 MPV 10.6 Immature Gran % (Auto) 0.9 H Neut % (Auto) 47.8 Lymph % (Auto) 39.6 [place] % (Auto) 11.3 H Eos % (Auto) 0.1 Baso % (Auto) 0.3 Lymph # (Auto) 2.7 [place] # (Auto) 0.8 Eos # (Auto) 0.0 Baso # (Auto) 0.0 Abs Immat Gran (auto) 0.06 H Absolute Neuts (auto) 3.3 Absolute Nucleated RBC 0.090 H Nucleated RBC % (auto) 1.3 H Smear Tech's Comments PT INR Sodium 143 Potassium 4.1 Chloride 114 H Carbon Dioxide 22 Anion Gap 11 L BUN 9 Creatinine 0.58 Estim Creat Clear Calc 91.7 Estimated GFR > 60 Random Glucose 86 Calcium 8.2 L Iron TIBC % Saturation Unsat Iron Binding Ferritin Total Bilirubin Direct Bilirubin AST ALT Alkaline Phosphatase Total Protein Albumin Lipase Influenza Type A (PCR) Influenza Type B (PCR) RSV RNA Qual (PCR) SARS-CoV-2 RNA (RT-PCR) Blood Type Antibody Screen Crossmatch Airway Mallampati Class: II TM Dist: >3cm Neck ROM: Full Denture: Upper Heart: rrr Lungs: cta Assessment and Plan Assessment Anesthesia Assessment: Anesthesia Plan Discussed and Chart Reviewed Final Anesthetic Review Family History of Problems with Anesthesia: No History of Problems with Anesthesia: No NPO: Yes ASA Class: III Final Preanesthetic Review: No Changes in Pt Med Stat, Meds/Allgs Chart Reviewed and Consent Obtained/Reviewed Patient Risk: Intermediate Anesthetic Plan Anesthetic Plan: MAC: Disposition: Standard PACU
--- NOTE | 2022-10-24 14:29 | P.OP_ITS ---
Operative Note Operative Note Date of Service: 10/24/22 Narrative: Operative Information Procedure Description: EGD, Colonoscopy Indication: anemia Anesthesia: MAC FLEXIBLE TRANSORAL UPPER GASTROINTESTINAL ENDOSCOPY AND COLONOSCOPY PROCEDURE NOTE UPPER ENDOSCOPY Consent: Indications for the procedure and potential complications of bleeding, perforation, reaction to medications and missed diagnosis were discussed with the patient and informed consent was obtained. Instrument: Olympus GIF H 190 J mid size upper endoscope Monitoring: Vital signs and clinical assessment, continuous EKG monitoring, Pulse oximetry, Carbon Dioxide monitoring and blood pressure monitoring were done throughout the procedure. Procedure: The patient was placed in the left lateral decubitis position and pre-procedure medications were administered and a bite block was placed. The endoscope was inserted into the mouth and advanced under direct vision to the third part of duodenum. A careful inspection was made as the upper endoscope was withdrawn including a retroflexed examination of the proximal stomach; Findings and interventions are described below. Findings: Larynx:normal Esophagus: GE junction at 38 cm, diaphragm hiatus at 40 cm, 2 cm sliding hiatal hernia with lax LES Stomach: Patchy gastritis. Biopsies were obtained. Grade 2 flap valve on retroflexed examination of the cardia. Duodenum: bulbar duodenitis, bx taken no blood seen Intervention: Biopsies as noted above COLONOSCOPY Instrument: Olympus variable stiffness pediatric scope 190L Colonoscopy Monitoring: Vital signs and clinical assessment, continuous EKG monitoring, Pulse oximetry, Carbon Dioxide monitoring and blood pressure monitoring were done throughout the procedure. Colon withdrawal time was 13 minutes. Procedure: The patient was placed in the left lateral decubitis position and pre-procedure medications were administered. After a digital rectal examination of the ano-rectum, the video colonoscope was inserted into the rectum and advanced through the colon to the cecum/TI. The colonoscope was slowly withdrawn in a retrograde panoramic fashion and the colon mucosa was carefully examined including a retroflexed view of the rectum. Findings and interventions are described below. Procedure Difficulty: easy Findings: Terminal Ileum-normal Cecum:normal Ascending Colon: normal Transverse Colon -normal Descending Colon:normal Sigmoid Colon:scattered small diverticula, Rectum: Retroflexion with small internal hemorrhoids, grade I Anorectum - normal No blood seen Colon preparation: [place] Bowel Preparation Scale Right colon; 2 Transverse colon: 2 Left colon; 2 (0 = Unprepared colon segment with mucosa not seen due to solid stool that cannot be cleared. 1 = Portion of mucosa of the colon segment seen, but other areas of the colon segment not well seen due to staining, residual stool and/or opaque liquid. 2 = Minor amount of residual staining, small fragments of stool and/or opaque liquid, but mucosa of colon segment seen well. 3 = Entire mucosa of colon segment seen well with no residual staining, small fragments of stool or opaque liquid) Impression and Post Procedure Diagnosis: Endoscopy Findings: gastritis duodenitis Colonoscopy Findings: internal hemorrhoids diverticular disease Plan: Await Pathology results No cause for blood loss seen, recommend out patient capsule endoscopy can go home with low dose PPI If h pylori pos then treat High fiber diet leaflet avoid straining at stool, epsom salts and sitz bath, anusol supps or cream Above findings were reviewed with the patient and relevant handouts were provided if indicated.
--- NOTE | 2022-10-24 14:41 | P.DS_ITS ---
DS: Providers Provider Date of Service: 10/24/22 Date of admission: 10/23/22 15:51 Primary care physician: Lisandro Beal MD Consults: 10/23/22 15:51 Consult to Gastroenterology Routine Consulting Provider: Neil Virk Reason for consultation: symptomatic anemia DS: Diagnosis Discharge Diagnosis (1) Anemia: Status: Acute (2) COVID-19: Status: Acute DS: Summary Hospital Course Hospital Course: from initial hpi: Chief Complaint: weakness 66 year old female with history of CAD s/p STEMI with LAD stenting in 2013, atherosclerosis, depression/anxiety/hypothyroidism, hypertension, hyperlipidemia presented to the ED earlier today from Cardiology office for evaluation of severe symptomatic anemia.? The patient reports that for the last 3 months has been experiencing symptoms including weakness, fatigue, dyspnea on exertion, palpitations that has been significantly limiting her activities.? There has also been some myalgia.? She denies any bleeding episodes including melena, hematochezia, epistaxis, vaginal bleeding, or hematemesis.? Her last colonoscopy was at age 52, 14 years ago, which she reports was benign.? She has not had any recent blood work in the last year prior to that ordered this morning? by Dr. Jones. H/H this a.m. 4.9/20.5 with MCV 62.7.? Repeated in the ED with H/H 4.6/19.0% with MCV 60 2.3%.? Vital signs stable.? Renal function electrolyte levels normal.? EKG showing NSR, rate [address] abnormality but no ST or depressions suggestive of acute ischemia.? Chest x-ray appears negative for any acute cardiopulmonary abnormality upon my review.? Patient be transfused 2 units packed red blood cells in the ED. She is also reporting URI symptoms including productive cough and right ear pain ongoing for 1 week. To be admitted for severe symptomatic anemia of unclear etiology. hospital course: Patient was admitted for severe symptomatic iron deficiency anemia due to chronic blood loss anemia. She was transfused 3 units PRBC and hemoglobin improved appropriately. Is 8.5 at discharge. She underwent EGD and colonoscopy which showed some gastritis, duodenitis, hemorrhoids, diverticular disease, but findings not considered to be definitive diagnosis of source of bleed, therefore, patient will follow up outpatient with Gastroenterology for further investigation with video capsule endoscopy. She will be discharged on low-dose PPI and iron supplement. Patient was instantly found to be COVID positive, she is minimal upper respiratory symptoms and will be managed symptomatically. For coronary disease she was continued on aspirin, statin, beta-ro, Zetia. For hypothyroidism she is continue on Synthroid. For mood disorders continued on Effexor. for hypertension she was continued on Toprol. Time Spent with Patient Time attestation: Total time managing care of this patient today ____ minutes. Discharge coordination time: Greater than 30 minutes Quality: Safe Use of Opioids Does Pt have an Active Cancer Diagnosis on the Problem List?: No Quality: Stroke Does the patient have a stroke diagnosis?: No Physical Exam Vital Signs: Vital Signs: Last Vital Signs Temp 36 F L 10/24/22 14:27 Pulse 63 10/24/22 14:27 Resp 22 H 10/24/22 14:27 BP 97/37 L 10/24/22 14:27 Pulse Ox 99 10/24/22 14:27 O2 Del Method 10/24/22 14:27 BMI result Body Mass Index 22.8 General: AO X 3, no acute distress Resp: CTA bilateral, no accessory muscles used CVS: S1,S2,RRR GI: soft, non tender, non distended Neuro: motor grossly intact, alert Psych: appropriate affect, appropriate insight DS: Data Data Completed and Pending Pending studies at discharge: Pending at discharge 10/24/22 14:06 Surgical [PTH] Routine Labs on day of discharge: Laboratory Results - last 24 hr 10/23/22 10/23/22 10/23/22 14:31 14:31 14:31 WBC 5.2 RBC 3.05 L Hgb 4.6 L* Hct 19.0 L* MCV 62.3 L MCH 15.1 L MCHC 24.2 L RDW 21.5 H Plt Count 245 MPV 9.1 L Immature Gran % (Auto) 0.4 Neut % (Auto) 51.3 Lymph % (Auto) 35.9 [place] % (Auto) 12.4 H Eos % (Auto) 0.0 Baso % (Auto) 0.0 Lymph # (Auto) 1.9 [place] # (Auto) 0.7 Eos # (Auto) 0.0 Baso # (Auto) 0.0 Abs Immat Gran (auto) 0.02 Absolute Neuts (auto) 2.7 Absolute Nucleated RBC 0.030 H Nucleated RBC % (auto) 0.6 H Smear Tech's Comments PT 12.8 INR 1.1 Sodium Potassium Chloride Carbon Dioxide Anion Gap BUN Creatinine Estim Creat Clear Calc Estimated GFR Random Glucose Calcium Iron TIBC % Saturation Unsat Iron Binding Ferritin Total Bilirubin Direct Bilirubin AST ALT Alkaline Phosphatase Total Protein Albumin Lipase Influenza Type A (PCR) Influenza Type B (PCR) RSV RNA Qual (PCR) SARS-CoV-2 RNA (RT-PCR) Blood Type A Negative Antibody Screen NEGATIVE Crossmatch See Detail 10/23/22 10/23/22 10/23/22 14:31 16:07 23:37 WBC 6.6 RBC 4.04 L D Hgb 7.9 L D Hct 27.8 L D MCV 68.8 L D MCH 19.6 L MCHC 28.4 L RDW 25.7 H Plt Count 246 MPV 10.0 Immature Gran % (Auto) 0.3 Neut % (Auto) 40.8 L Lymph % (Auto) 44.5 H [place] % (Auto) 13.9 H Eos % (Auto) 0.2 Baso % (Auto) 0.3 Lymph # (Auto) 2.9 [place] # (Auto) 0.9 Eos # (Auto) 0.0 Baso # (Auto) 0.0 Abs Immat Gran (auto) 0.02 Absolute Neuts (auto) 2.7 Absolute Nucleated RBC 0.040 H Nucleated RBC % (auto) 0.6 H Smear Tech's Comments VERIFIED PT INR Sodium 140 Potassium 4.3 Chloride 109 H Carbon Dioxide 22 Anion Gap 13 BUN 11 Creatinine 0.70 Estim Creat Clear Calc 76.0 Estimated GFR > 60 Random Glucose 147 H Calcium 8.6 Iron 9 L TIBC 452 H % Saturation 2 L Unsat Iron Binding 443 Ferritin 5 L Total Bilirubin 0.5 Direct Bilirubin 0.2 AST 15 ALT 10 Alkaline Phosphatase 135 H Total Protein 6.6 Albumin 3.9 Lipase 22 Influenza Type A (PCR) NEGATIVE Influenza Type B (PCR) NEGATIVE RSV RNA Qual (PCR) NEGATIVE SARS-CoV-2 RNA (RT-PCR) POSITIVE A Blood Type Antibody Screen Crossmatch 10/24/22 10/24/22 06:26 06:26 WBC 6.8 RBC 4.02 L Hgb 8.5 L Hct 29.1 L MCV 72.4 L MCH 21.1 L MCHC 29.2 L RDW 27.2 H Plt Count 214 MPV 10.6 Immature Gran % (Auto) 0.9 H Neut % (Auto) 47.8 Lymph % (Auto) 39.6 [place] % (Auto) 11.3 H Eos % (Auto) 0.1 Baso % (Auto) 0.3 Lymph # (Auto) 2.7 [place] # (Auto) 0.8 Eos # (Auto) 0.0 Baso # (Auto) 0.0 Abs Immat Gran (auto) 0.06 H Absolute Neuts (auto) 3.3 Absolute Nucleated RBC 0.090 H Nucleated RBC % (auto) 1.3 H Smear Tech's Comments PT INR Sodium 143 Potassium 4.1 Chloride 114 H Carbon Dioxide 22 Anion Gap 11 L BUN 9 Creatinine 0.58 Estim Creat Clear Calc 91.7 Estimated GFR > 60 Random Glucose 86 Calcium 8.2 L Iron TIBC % Saturation Unsat Iron Binding Ferritin Total Bilirubin Direct Bilirubin AST ALT Alkaline Phosphatase Total Protein Albumin Lipase Influenza Type A (PCR) Influenza Type B (PCR) RSV RNA Qual (PCR) SARS-CoV-2 RNA (RT-PCR) Blood Type Antibody Screen Crossmatch Discharge Plan Discharge Anticipated Discharge Date/Time: 10/24/22 14:38 Patient Disposition: Home, Self-Care Discharge Diagnosis: iron defeciency anemia, covid Referrals: Neil Virk MD [Physician] - 1 Week Lisandro Beal MD [Primary Care Provider] - 1 Week Discharge Medications: New ferrous sulfate 324 mg (65 mg iron) Tablet,Delayed Release (Dr/Ec) 325 mg PO DAILY Qty: 30 0RF omeprazole 20 mg capsule,delayed release(DR/EC) 20 mg PO DAILY Qty: 30 0RF Continued atorvastatin 80 mg tablet 80 mg PO DAILY Qty: 90 3RF ezetimibe 10 mg tablet 10 mg PO DAILY Qty: 90 3RF metoprolol succinate 25 mg tablet extended release 24 hr 25 mg PO DAILY Qty: 90 1RF zolpidem 5 mg tablet 5 mg PO BEDTIME venlafaxine 225 mg tablet extended release 24hr 225 mg PO DAILY levothyroxine [Euthyrox] 75 mcg tablet 75 mcg PO DAILY aspirin 81 mg tablet,chewable 81 mg PO DAILY Discharge Orders: Discharge Order (Routine); Ordered 10/24/22 Ordered By: Jeet Berry Diet: Advance to usual diet Activity on Discharge: As tolerated Stand Alone Forms: Patient Portal Discharge page Care Plan Goals: manage anemia Health Concerns: anemia, covid Plan of Treatment: start iron and ppi, follow up with gi for capsule endoscopy Assessment: see above
--- NOTE | 2022-10-24 14:58 | MHC.CM.PN ---
pt dcd home no skilled servcies ordered by
--- NOTE | 2022-10-24 15:55 | PC.NURSE ---
Julia back in ED from PACU after endoscopy. Patient is alert and oriented x3, speech is clear, VSS. Awaiting disposition orders.
== END 2022-10-24 16:10 | disposition home or self-care (01) | DRG 811 ==
LOC: HO.ED 14:58 → HO.EDOVER 15:58
PROVIDERS: Internal Medicine Gastroenterology; Admitting Provider Physician Assistant; Emergency Provider Student in an Organized Health Care Education/Training Program; PCP Internal Medicine; Visit Provider Internal Medicine
PROC: 0DB98ZX Excision of Duodenum, Via Natural or Artificial Opening Endoscopic, Diagnostic (ICD-10-PCS; principal; 2022-10-24 15:00)
DX: D50.0 Iron deficiency anemia secondary to blood loss (chronic) (principal); U07.1 COVID-19; I25.10 Atherosclerotic heart disease of native coronary artery without angina pectoris; E78.5 Hyperlipidemia, unspecified; F41.9 Anxiety disorder, unspecified; F32.A Depression, unspecified; E03.9 Hypothyroidism, unspecified; K29.70 Gastritis, unspecified, without bleeding; K29.80 Duodenitis without bleeding; K64.8 Other hemorrhoids; K57.30 Diverticulosis of large intestine without perforation or abscess without bleeding; I25.2 Old myocardial infarction; Z95.5 Presence of coronary angioplasty implant and graft; Z79.82 Long term (current) use of aspirin; Z79.890 Hormone replacement therapy; Z79.899 Other long term (current) drug therapy
CPT/HCPCS: 0241U; 36415; 71046; 80048; 80053; 80061; 80076; 82728; 83540; 83690; 83880; 85025; 85027; 85610; 86850; 86900; 86901; 86923; 88305; 88342; 93005; 99212; 99285; J1650; P9016

== ENCOUNTER → 2022-11-23 08:17 | Outpatient (BNVA) | payer MEDICARE, MEDICAID, SELFPAY | PROVIDERS: PCP Internal Medicine; Referring Provider Internal Medicine; Visit Provider Internal Medicine Gastroenterology ==

== ENCOUNTER → 2023-01-15 12:44 | Outpatient (BNVA) | payer MEDICARE, MEDICAID, SELFPAY | PROVIDERS: PCP Internal Medicine; Referring Provider Internal Medicine; Visit Provider Internal Medicine | DX: I25.10 Atherosclerotic heart disease of native coronary artery without angina pectoris (principal); I21.3 ST elevation (STEMI) myocardial infarction of unspecified site; I10 Essential (primary) hypertension; D50.0 Iron deficiency anemia secondary to blood loss (chronic); E78.5 Hyperlipidemia, unspecified | CPT/HCPCS: 99212 ==

== ENCOUNTER → 2023-01-21 10:45 | Outpatient (BNVA) | payer MEDICARE, MEDICAID, SELFPAY | PROVIDERS: PCP Internal Medicine; Referring Provider Internal Medicine; Visit Provider Internal Medicine Gastroenterology | DX: D50.9 Iron deficiency anemia, unspecified (principal); K29.50 Unspecified chronic gastritis without bleeding; F17.200 Nicotine dependence, unspecified, uncomplicated | CPT/HCPCS: 99212 ==

== ENCOUNTER 2023-02-08 10:51 | Outpatient (REF) | payer MEDICARE, MEDICAID, SELFPAY | END 2023-02-08 10:52 | disposition home or self-care (01) | LOC: HO.MDS 10:51 | PROVIDERS: Visit Provider Internal Medicine Gastroenterology | DX: D64.9 Anemia, unspecified (principal) | CPT/HCPCS: 96365; J1756 ==

== ENCOUNTER 2023-02-15 12:48 | Outpatient (REF) | payer MEDICARE, MEDICAID, SELFPAY | END 2023-02-15 12:49 | disposition home or self-care (01) | LOC: HO.MDS 12:48 | PROVIDERS: PCP Internal Medicine; Visit Provider Internal Medicine Gastroenterology | DX: D64.9 Anemia, unspecified (principal) | CPT/HCPCS: 96365; J1756 ==

== ENCOUNTER 2023-07-26 10:57 | Outpatient (AMB) | payer MEDICARE, MEDICAID, SELFPAY ==
[2023-07-26 11:00] VITALS: BP 138/65; PULSE 72; BMI 20.6
--- NOTE | 2023-07-26 11:00 | MHC.OFFVIS ---
Intake Vital Signs 07/26/23 11:00 Height 5 ft 6 in Weight 127 lb 6.835 oz BMI 20.6 BP 138/65 Blood Pressure Location Lt brachial Position Sitting Pulse 72 Intake Visit Reasons: 6 Month Follow Up Intake Note: Selin presents in the office as a follow up. CC: She states she has been doing good since last visit. Denies other GI symptoms today. Systems Navigator Required: No Allergies No Known Allergies Allergy (Verified 01/21/23 10:49) HPI 6 Month Follow Up HPI Details RECAP: She was referred to ED from cardiology office after she had routine labs checked for symptoms including fatigue, SOB, exertional dyspnea and palpitations. Her HGB was found to be 4.9 g/dl, MCV 62, ferritin of 5 and this had improved with PRBC to around 7 g./dl ?She denied melena, hematochezia, epistaxis, vaginal bleeding, or hematemesis.?No chest pain or abdominal pain. Denied any nsaids apart from aspirin, not on any other anti coagulants EGD?colo: Endoscopy Findings: gastritis duodenitis Colonoscopy Findings: internal hemorrhoids diverticular disease Path: mild gastritis capsule: gastritis and duodenitis no active bleeding INTERIM: she is doing well she showed me a slip wiht labs from her PCP, HGB 13 and ferritin 70 no melena no rectal bleeding appetite is good no abdominal pain still smoking, 3 cig/day she has morning numbness in feet and cold feet as well, denies exertional pain in legs EXAM: GENERAL: The patient is well developed and nontoxic. VITAL SIGNS:see workflow HEENT: Nonicteric sclerae, PERRLA, EOMI. Oropharynx clear. Moist mucous membranes. Conjunctivae appear well perfused. No thyroid mass. CHEST: Chest wall is nontender. HEART: Regular rate and rhythm without murmurs. LUNGS: Clear to auscultation bilaterally. ABDOMEN: Soft, positive bowel sounds, nontender, no organomegaly.no flank tenderness SKIN: No rash, no excessive bruising, petechiae, or purpura. NEUROLOGIC: Cranial nerves II-XII intact without motor/sensory deficit. Psych: nml affect delayed cap refill both feet, reduced pulses A/P: 1/ chronic iron def anemia, low level blood loss over long time, maybe due to chronic gastritis from aspirin and smoking use HGB has been stable 2/ possible PVD or Buergers type syndrome, vs spinal origin PLAN: 1/ add low dose trental, if ongoing sx refer vascular 2/ PCP is checking labs periodically, if she has overt GIB might repeat VCE 3/ smoking cessation strongly advised [facility] Medical History COVID-[address] elevation (STEMI) myocardial infarction Essential hypertension Precordial chest pain Elevated BP without diagnosis of hypertension Other and unspecified hyperlipidemia Smoking Atherosclerotic cardiovascular disease Surgical History Hx of esophagogastroduodenoscopy Hx of colonoscopy H/O heart artery stent Family History Father No problems noted. Mother No problems noted. Unknown Diabetes Social History Alcohol intake: never Patient Tobacco Use Status: Tobacco use Unknown Years Smoked: 30 +/- service: No Current occupational status: retired Physical Exam Vital Signs: Last Vital Signs Pulse 72 07/26/23 11:00 BP 138/65 07/26/23 11:00 BMI result Body Mass Index 20.6 Assessment & Plan Assessment & Plan (1) Anemia: Code(s): D64.9 - Anemia, unspecified Qualifiers: Anemia type: iron deficiency Iron deficiency anemia type: chronic blood loss Qualified Code(s): D50.0 - Iron deficiency anemia secondary to blood loss (chronic) (2) Weakness: Code(s): R53.1 - Weakness Medications: New pentoxifylline ER must administer with a meal/food 400 mg PO TID 90 tabs 1RF Coding Level of Care Code Est Pt Level 3 (99355) Diagnoses Iron deficiency anemia due to chronic blood loss D50.0 Anemia type: iron deficiency Iron deficiency anemia type: chronic blood loss Weakness R53.1
== END 2023-07-26 11:20 | disposition home or self-care (01) ==
PROVIDERS: PCP Internal Medicine; Visit Provider Internal Medicine Gastroenterology
DX: D50.0 Iron deficiency anemia secondary to blood loss (chronic) (principal); R53.1 Weakness
CPT/HCPCS: 99213

== ENCOUNTER → 2023-07-26 10:57 | Outpatient (BNVA) | payer MEDICARE, MEDICAID, SELFPAY | PROVIDERS: PCP Internal Medicine; Visit Provider Internal Medicine Gastroenterology | DX: D50.0 Iron deficiency anemia secondary to blood loss (chronic) (principal); R53.1 Weakness | CPT/HCPCS: 99212 ==

== ENCOUNTER 2024-01-14 12:20 | Outpatient (AMB) | payer MEDICARE, SELFPAY ==
--- NOTE | 2024-01-14 12:30 | A.OFFVIS_ITS ---
Vital Signs 01/14/24 12:31 Height 5 ft 6 in Weight 119 lb 7.849 oz BMI 19.3 BP 120/52 L Blood Pressure Location Lt brachial Position Sitting Pulse 75 Intake Visit Reasons: 1 yr f/up [employer] Required: No Accompanied by: Self / Same As Patient Allergies No Known Allergies Allergy (Verified 01/21/23 10:49) Medication List - Last Reconciled 01/14/24 by Juan Jose Jones MD aspirin 81 mg PO DAILY atorvastatin 80 mg PO DAILY ezetimibe 10 mg PO DAILY levothyroxine (Euthyrox) 75 mcg PO DAILY metoprolol succinate ER 25 mg PO DAILY omeprazole 20 mg PO DAILY sucralfate 1 g PO BID venlafaxine ER 225 mg PO DAILY HPI Comments Details: Selin is here for follow-up regarding coronary artery disease. To recall, she had ST-elevation myocardial infarction 2013. She had emergent catheterization and had LAD stenting. EF at that time was 35%, but subsequently normalized. Last year, she had shortness of breath and workup showed severe anemia. She had transfusions as well as GI workup. Overall, she is feeling good. No new complaints. [facility] Medical History COVID-[address] elevation (STEMI) myocardial infarction Essential hypertension Precordial chest pain Elevated BP without diagnosis of hypertension Other and unspecified hyperlipidemia Smoking Atherosclerotic cardiovascular disease Surgical History Hx of esophagogastroduodenoscopy Hx of colonoscopy H/O heart artery stent Family History Father No problems noted. Mother No problems noted. Unknown Diabetes Social History Alcohol intake: never Patient Tobacco Use Status: Tobacco use Unknown Years Smoked: 30 +/- service: No Current occupational status: retired Review of Systems Const Denies chills, Denies fatigue, Denies fever(s), Denies frequent falls, Denies weakness, Denies weight gain and Denies weight loss ENT Denies dizziness Card Denies chest pain, Denies leg edema, Denies lightheadedness, Denies palpitations, Denies dyspnea and Denies dyspnea on exertion Resp Denies cough, Denies dyspnea and Denies dyspnea on exertion GI Denies hematochezia Musc Denies abnormal gait, Denies muscle weakness, Denies numbness, Denies radiating pain into limb and Denies tingling Neuro Denies abnormal gait, Denies dizziness, Denies frequent falls, Denies numbness, Denies tingling and Denies weakness Endo Denies fatigue and Denies palpitations Physical Exam Vital Signs: Last Vital Signs Pulse 75 01/14/24 12:31 BP 120/52 L 01/14/24 12:31 BMI result Body Mass Index 19.3 Const General: comfortable and no acute distress Orientation/consciousness: patient oriented x3 HEENT Other: Unremarkable Head: Yes normal to inspection Neck Neck: Yes normal visual inspection Chest Chest palpation & inspection: normal inspection of the chest Resp Auscultation: clear to auscultation bilaterally Cardio Palpation: normal PMI Heart sounds: S1 normal heart sound present, S2 normal heart sound present, no gallops, no murmurs and no rubs GI Palpation (GI): Soft to palpation Back/Spine/Pelvis Other: unremarkable Skin General skin exam: no rashes or lesions noted Neuro General: patient oriented x3 Extrem General: Yes normal to inspection Psych Mental Status: mental status grossly normal Office Procedures EKG Details: EKG with sinus rhythm at 75/Min; right atrial enlargement; no significant ST-T changes and otherwise unremarkable[place] [id number], Complete Assessment & Plan Assessment & Plan (1) Atherosclerotic cardiovascular disease: Code(s): I25.10 - Atherosclerotic heart disease of [place] coronary artery without angina pectoris Category: Medical (2) Essential hypertension: Code(s): I10 - Essential (primary) hypertension Category: Medical (3) Other and unspecified hyperlipidemia: Code(s): E78.5 - Hyperlipidemia, unspecified Category: Medical (4) Smoking: Code(s): F17.200 - Nicotine dependence, unspecified, uncomplicated Category: Social Hx (5) Anemia: Code(s): D64.9 - Anemia, unspecified Category: Medical Qualifiers: Anemia type: iron deficiency Iron deficiency anemia type: chronic blood loss Qualified Code(s): D50.0 - Iron deficiency anemia secondary to blood loss (chronic) Plan Cardiac catheterization 2014- s/p LAD PCI; She had no significant disease in left main or circumflex. Intermediate grade lesion in mid right coronary artery. Echocardiogram 2021 with LVEF 57%; moderate diastolic dysfunction; basal inferior/inferoseptal hypokinesis. Mild mitral and aortic calcification. Myocardial perfusion imaging 2021 with mild reversible inferior defect thought to be from diaphragmatic attenuation artifact and less likely ischemia. Clinically, she has got absolutely no angina or in fact any cardiac symptoms. Continue medical therapy for stable coronary disease. She remains on aspirin, beta-blockers, statins and Zetia. Again discussed about smoking cessation but doubt if she will do that. The GI bleeding issue seems resolved at this time. She is already undergone endoscopy workup. She can follow hemoglobins through her own PCP. Follow-up in 1 year. To call with concerns. Coding Level of Care Code Est Pt Level 4 (40439) Diagnoses Atherosclerotic cardiovascular disease I25.10 Essential hypertension I10 Other and unspecified hyperlipidemia E78.5 Smoking F17.200 Iron deficiency anemia due to chronic blood loss D50.0 Anemia type: iron deficiency Iron deficiency anemia type: chronic blood loss CPT Codes EKG - CPT: 78102-[id number], Complete ([id number])
[2024-01-14 12:31] VITALS: BP 120/52; PULSE 75; BMI 19.3
== END 2024-01-14 12:47 | disposition home or self-care (01) ==
PROVIDERS: PCP Internal Medicine; Visit Provider Internal Medicine
DX: I25.10 Atherosclerotic heart disease of native coronary artery without angina pectoris (principal); I10 Essential (primary) hypertension; E78.5 Hyperlipidemia, unspecified; F17.200 Nicotine dependence, unspecified, uncomplicated; D50.0 Iron deficiency anemia secondary to blood loss (chronic)
CPT/HCPCS: 93010; 99214

== ENCOUNTER → 2024-01-14 12:20 | Outpatient (BNVA) | payer MEDICARE, SELFPAY | PROVIDERS: PCP Internal Medicine; Visit Provider Internal Medicine | DX: I25.10 Atherosclerotic heart disease of native coronary artery without angina pectoris (principal); I10 Essential (primary) hypertension; E78.5 Hyperlipidemia, unspecified; D50.0 Iron deficiency anemia secondary to blood loss (chronic); F17.200 Nicotine dependence, unspecified, uncomplicated; Z79.82 Long term (current) use of aspirin; Z79.899 Other long term (current) drug therapy | CPT/HCPCS: 93005; 99212 ==

== ENCOUNTER 2024-07-11 20:03 | Emergency (ER) | payer MEDICARE, SELFPAY ==
--- NOTE | ~2024-07-11 | CT_ITS ---
EXAMINATION: CT HEAD WITHOUT CONTRAST CT CERVICAL SPINE WITHOUT CONTRAST CLINICAL INFORMATION: Head strike. COMPARISON: None. TECHNIQUE: Imaging was performed from the skull base to vertex without intravenous administration of contrast. In addition, helical noncontrast CT imaging was acquired through the cervical spine and source images were reviewed along with axial reconstructions and sagittal and coronal MPRs. [This CT examination was performed using dose optimization techniques as appropriate, variously including the following: *Automated exposure control *Adjustment of mA and/or kV according to patient size (this includes techniques or standardized protocols for targeted exams where dose is matched to indication/reason for exam; i.e. extremities or head) *Use of iterative reconstruction technique] DLP: 923 mGy-cm FINDINGS: HEAD: No intracranial mass, hemorrhage, or midline shift is visualized. The ventricles and sulci are proportional. No extra-axial collections are identified. The paranasal sinuses and mastoid air cells are well aerated. CERVICAL SPINE: There is no evidence of acute cervical spine fracture. Vertebral bodies remain normal in height. Cervical vertebrae have normal alignment. There is multilevel degenerative spondylosis of the cervical spine with disc height narrowing and endplate spurs and facet joint arthrosis No pre- or paravertebral soft tissue abnormality is identified. Limited assessment of the lung apices is unremarkable. CT/CT cervical spine wo IV con IMPRESSION: 1. No acute intracranial pathology. 2. No CT evidence of acute cervical spine fracture or traumatic subluxation Electronically signed by: Vaughn Campa MD 07/11/2024 09:16 PM EDT
--- NOTE | ~2024-07-11 | XR_ITS ---
EXAMINATION: XR HAND/WRIST, RIGHT CLINICAL INFORMATION: Pain. Trauma. COMPARISON: None available. TECHNIQUE: PA, lateral, oblique, and scaphoid views of the right hand and wrist. FINDINGS: On image #2 there is a subtle cortical irregularity at the mid surface of the distal radius at the wrist joint. This is likely chronic. If pain persists consider follow-up CT. No displaced fracture. No dislocation. XR/XR hand wrist RT IMPRESSION: Subtle cortical irregularity at the mid surface of the distal radius at the wrist joint. This is likely chronic. If pain persists consider follow-up CT. Electronically signed by: Vaughn Campa MD 07/11/2024 09:09 PM EDT
--- NOTE | ~2024-07-11 | CT_ITS ---
EXAMINATION: CT HEAD WITHOUT CONTRAST CT CERVICAL SPINE WITHOUT CONTRAST CLINICAL INFORMATION: Head strike. COMPARISON: None. TECHNIQUE: Imaging was performed from the skull base to vertex without intravenous administration of contrast. In addition, helical noncontrast CT imaging was acquired through the cervical spine and source images were reviewed along with axial reconstructions and sagittal and coronal MPRs. [This CT examination was performed using dose optimization techniques as appropriate, variously including the following: *Automated exposure control *Adjustment of mA and/or kV according to patient size (this includes techniques or standardized protocols for targeted exams where dose is matched to indication/reason for exam; i.e. extremities or head) *Use of iterative reconstruction technique] DLP: 923 mGy-cm FINDINGS: HEAD: No intracranial mass, hemorrhage, or midline shift is visualized. The ventricles and sulci are proportional. No extra-axial collections are identified. The paranasal sinuses and mastoid air cells are well aerated. CERVICAL SPINE: There is no evidence of acute cervical spine fracture. Vertebral bodies remain normal in height. Cervical vertebrae have normal alignment. There is multilevel degenerative spondylosis of the cervical spine with disc height narrowing and endplate spurs and facet joint arthrosis No pre- or paravertebral soft tissue abnormality is identified. Limited assessment of the lung apices is unremarkable. CT/CT head/brain wo IV con IMPRESSION: 1. No acute intracranial pathology. 2. No CT evidence of acute cervical spine fracture or traumatic subluxation Electronically signed by: Vaughn Campa MD 07/11/2024 09:16 PM EDT
[2024-07-11 20:10] VITALS: BP 146/70; PULSE 67; O2SAT 98
[2024-07-11 20:12] VITALS: BP 133/68; PULSE 69; RESP 18; TEMP 36.6; O2SAT 100; BMI 21.0
--- NOTE | 2024-07-11 20:24 | ECG_ITS ---
Test Reason : SYNCOPE Blood Pressure : / mmHG Vent. Rate : 060 BPM Atrial Rate : 060 BPM P-R Int : 140 ms QRS Dur : 084 ms QT Int : 426 ms P-R-T Axes : 067 043 066 degrees QTc Int : 426 ms Normal sinus rhythm Normal ECG When compared with ECG of 23-OCT-2022 14:15, No significant change was found Referred By: Alison Key Electronically Signed By:JAMEL PALACIOS
[2024-07-11 20:39] LABS: MANUAL DIFF FLAG NO
[2024-07-11 20:40] LABS: Basophils Percent Auto 0.1 % (0-2); Eosinophils Percent Auto 0.1 % (0-4); Hematocrit 32.9 % (37.0-47.0); Hemoglobin 11.3 g/dl (12.0-16.0); Imm Gran Abs Auto 0.03 X10*3/uL (0.00-0.03); Imm Gran Pct Auto 0.3 % (0.0-0.4); Lymphocytes Absolute Auto 3.8 X10*3/uL (1.2-4.9); Lymphocytes Percent Auto 32.6 % (20-40); Mean Corpuscular HGB Conc 34.3 g/dl (31.0-35.0); Mean Corpuscular Hemoglobin 33.9 pg (27.0-33.0); Mean Corpuscular Volume 98.8 fL (80.0-98.0); Mean Platelet Volume 10.7 fL (9.4-12.3); Monocytes Absolute Auto 1.2 X10*3/uL (0.1-1.2); Neutrophils Absolute Auto 6.6 x10*3/uL (2.0-8.3); Neutrophils Percent Auto 56.9 % (45-73); Platelet Count 198 X10*3/uL (160-400); Red Blood Count 3.33 X10*6/uL (4.20-5.50); Red Cell Distribution Width 14.1 % (11.0-16.0); White Blood Count 11.5 X10*3/uL (4.8-10.8)
[2024-07-11 20:50] LABS: Prothrombin Time 11.8 SEC (10.9-12.4)
[2024-07-11 20:53] LABS: Partial Thromboplastin Time 29.8 SEC (26.0-36.8)
[2024-07-11 21:07] LABS: Albumin Level 3.9 g/dL (3.5-5.0); Alkaline Phosphatase 107 U/L (39-117); Anion Gap 16 (12-20); Aspartate Amino Transferase 43 U/L (5-31); Bilirubin Direct 0.2 mg/dL (0.0-0.5); Bilirubin Total 0.4 mg/dL (0.0-1.0); Blood Urea Nitrogen 5 mg/dL (9-16); Calcium 9.3 mg/dL (8.4-10.2); Carbon Dioxide 26 mmol/L (22-29); Chloride 102 mmol/L (96-108); Creatinine Clr Calc Pharmacy 71.5; Estimated Glomerular Filt Rate > 60; Glucose Random 127 mg/dL (60-115); Magnesium 1.7 mg/dL (1.6-2.6); Potassium 4.5 mmol/L (3.3-5.1); Sodium 139 mmol/L (135-145); Total Protein 6.5 g/dL (6.5-8.0)
[2024-07-11 21:13] LABS: Troponin-I High Sensitivity < 2.7 ng/L (<3.5-17.0)
[2024-07-11 21:29] LABS: Alanine Aminotransferase 33 U/L (0-31)
[2024-07-11] MEDS: Acetaminophen 325 MG TABLET 975 MG PO (22:21)
[2024-07-11 22:49] VITALS: BP 160/54; PULSE 61; RESP 16; TEMP 36.7; O2SAT 96
[2024-07-12 00:56] VITALS: BP 153/48; PULSE 60
[2024-07-12 00:58] VITALS: BP 165/70; PULSE 58
[2024-07-12 00:59] VITALS: BP 154/49; PULSE 62
--- NOTE | 2024-07-12 01:08 | ED.GENADULT ---
HPI - General Adult General Chief complaint: Syncope Stated complaint: WEAKNESS FALL Time Seen by Provider: 07/11/24 22:54 Source: patient and EMS Mode of arrival: EMS Limitations: no limitations History of Present Illness ED Provider: Dr. Alba Way HPI narrative: patient comes to the emergency room complaining of a fall. Patient states that earlier today she was raking leaves in her backyard, tripped and landed on her right wrist. Patient states it hurt quite a bit. Patient went inside of her house. When she was inside sitting, she noticed that it was a bruise on her wrist, patient states that she started panicking, became very concerned, started hyperventilating and having a panic attack. Patient tried stepping outside to catch some breath. Patient states that she had significant anxiety and could not deescalate herself. Patient called 911. Patient states that she believes that While she was on the phone with 911, she was hyperventilating and had a vasovagal event/ near syncope. Patient states that she never had chest pain or shortness of breath. At this time, patient states that she feels completely back to baseline, only complaining of wrist pain. Related Data Home Medications ?Medication ?Instructions ?Recorded ?Confirmed aspirin 81 mg chewable tablet 81 mg PO DAILY 06/08/21 01/14/24 levothyroxine 75 mcg tablet 75 mcg PO DAILY 06/08/21 01/14/24 (Euthyrox) venlafaxine 225 mg tablet,extended 225 mg PO DAILY 06/08/21 01/14/24 release 24 hr Previous Rx's ?Medication ?Instructions ?Recorded omeprazole 20 mg capsule,delayed 20 mg PO DAILY #30 caps 10/24/22 release sucralfate 1 gram tablet 1 g PO BID #60 tabs 05/27/23 ezetimibe 10 mg tablet 10 mg PO DAILY #90 tabs 07/18/23 atorvastatin 80 mg tablet 80 mg PO DAILY #90 caps 02/21/24 metoprolol succinate 25 mg 25 mg PO DAILY #90 tabs 03/23/24 tablet,extended release 24 hr ibuprofen 600 mg tablet 600 mg PO Q8H PRN fever or pain 07/12/24 #20 tabs Allergies Allergy/AdvReac Type Severity Reaction Status Date / Time No Known Allergies Allergy Verified 07/11/24 20:14 Review of Systems Review of Systems: Constitutional : No Weight loss, No Fever, No Chills, No Night Sweats, No Fatigue, No Malaise ENT/Mouth : No Hearing loss, No Ear Pain, No Nasal Congestion, No Sinus Pain, No Hoarseness, No sore throat, No Rhinorrhea, No Swallowing Difficulty Eyes: No Eye Pain, No Swelling, No Redness, No Foreign Body, No Discharge, No Vision Changes Cardiovascular : No Chest Pain, No SOB, No Dyspnea on Exertion, No Orthopnea, No Edema, No Palpitations Respiratory : No Cough, No Sputum, No Wheezing, No Smoke Exposure, No Dyspnea Gastrointestinal : No Nausea, No Vomiting, No Diarrhea, No Constipation, No abdominal Pain, No Hematochezia, No Melena Genitourinary : no irregular bleeding, No Dysuria, No Urinary Frequency, No Hematuria, No Urinary Incontinence, No Urgency, No Flank Pain, No Urinary Flow Changes, No Hesitancy Musculoskeletal : Complaining of right wrist pain,No Myalgias, No Joint Swelling Skin : No Skin Lesions, No rash Neuro : No Weakness, No Numbness, No Paresthesias, No Loss of Consciousness, No Dizziness, No Headache Psych : complaining of panic attack, hyperventilating, No Depression, No SI/HI/AH/VH, No Social Issues, Heme/Lymph: No Bruising, No Bleeding,No Lymphadenopathy Endocrine : No Polyuria, No Polydipsia, No Temperature Intolerance PMFSH Past Medical History Medical History (Reviewed 07/12/24 @ 01:[address] MD) COVID-[address] elevation (STEMI) myocardial infarction Essential hypertension Precordial chest pain Elevated BP without diagnosis of hypertension Other and unspecified hyperlipidemia Smoking Atherosclerotic cardiovascular disease Surgical History Hx of esophagogastroduodenoscopy Hx of colonoscopy H/O heart artery stent Family History Family History Father No problems noted. Mother No problems noted. Unknown Diabetes Social History Social History Alcohol intake: never Patient Tobacco Use Status: Tobacco use Unknown Years Smoked: 30 +/- Smoked in Last 30 Days: Yes Use of substances other than those prescribed or required for medical reasons: Yes Substance Use Type: Marijuana Advance Directives: No Advance Directives Information Provided: No Do you have a plan to hurt others: No Plan service: No Current occupational status: retired Physical Exam ED Vital Signs: Vital Signs - 24 hr 07/11/24 20:12 07/11/24 22:49 07/12/24 00:56 Temperature 97.8 F 98.1 F Pulse Rate 69 61 60 Respiratory Rate 18 16 Blood Pressure 133/68 160/54 H 153/48 H Pulse Oximetry 100 96 Oxygen Delivery Method Room Air Room Air 07/12/24 00:58 07/12/24 00:59 Temperature Pulse Rate 58 62 Respiratory Rate Blood Pressure 165/70 H 154/49 H Pulse Oximetry Oxygen Delivery Method BMI result Body Mass Index 21.0 Medications Administered Discontinued Medications Generic Name Dose Route Start Last Admin Trade Name Freq PRN Reason Stop Dose Admin Acetaminophen 975 mg 07/11/24 22:16 07/11/24 22:21 Acetaminophen 325 Mg Tablet PO 07/11/24 22:17 975 mg ONCE ONE Administration Medical Decision Making Medical Decision Making [facility] Narrative: my interpretation of labs: Patient's white blood cell count 11.5, likely reactive leukocytosis. Hemoglobin 11.3 which is higher than usual for the patient, chemistry at baseline, normal LFTs, troponin negative. On physical exam, patient has pain over the snuffbox. A spica splint has been applied. Patient instructed to follow-up with orthopedics. On x-ray, there is a subtle irregularity along the distal radius. Differential Diagnosis Differential Diagnoses: The differential diagnosis associated with the presentation includes ( Radial fracture, scaphoid bone contusion/fracture.) Lab Data [facility] Lab Attestation statement: I reviewed the patient's lab results. 07/11/24 20:32 07/11/24 20:32 Labs: Lab Results 07/11/24 Range/Units 20:32 WBC 11.5 H (4.8-10.8) X10*3/uL RBC 3.33 L (4.20-5.50) X10*6/uL Hgb 11.3 L D (12.0-16.0) g/dl Hct 32.9 L (37.0-47.0) % MCV 98.8 H (80.0-98.0) fL MCH 33.9 H (27.0-33.0) pg MCHC 34.3 (31.0-35.0) g/dl RDW 14.1 (11.0-16.0) % Plt Count 198 (160-400) X10*3/uL MPV 10.7 (9.4-12.3) fL Immature Gran % (Auto) 0.3 (0.0-0.4) % Neut % (Auto) 56.9 (45-73) % Lymph % (Auto) 32.6 (20-40) % Sandoval % (Auto) 10.0 (2-11) % Eos % (Auto) 0.1 (0-4) % Baso % (Auto) 0.1 (0-2) % Lymph # (Auto) 3.8 (1.2-4.9) X10*3/uL Sandoval # (Auto) 1.2 (0.1-1.2) X10*3/uL Eos # (Auto) 0.0 (0.0-0.4) X10*3/uL Baso # (Auto) 0.0 (0.0-0.2) X10*3/uL Abs Immat Gran (auto) 0.03 (0.00-0.03) X10*3/uL Absolute Neuts (auto) 6.6 (2.0-8.3) x10*3/uL Absolute Nucleated RBC 0.000 (0.0-0.012) X10*3/uL Nucleated RBC % (auto) 0.0 (0.0-0.2) /100WBC PT 11.8 (10.9-12.4) SEC INR 1.0 (0.9-1.1) APTT 29.8 (26.0-36.8) SEC Sodium 139 (135-145) mmol/L Potassium 4.5 (3.3-5.1) mmol/L Chloride 102 (96-108) mmol/L Carbon Dioxide 26 (22-29) mmol/L Anion Gap 16 (12-20) BUN 5 L (9-16) mg/dL Creatinine 0.72 (0.5-1.4) mg/dL Estim Creat Clear Calc 71.5 Estimated GFR > 60 Random Glucose 127 H (60-115) mg/dL Calcium 9.3 D (8.4-10.2) mg/dL Magnesium 1.7 (1.6-2.6) mg/dL Total Bilirubin 0.4 (0.0-1.0) mg/dL Direct Bilirubin 0.2 (0.0-0.5) mg/dL AST 43 H (5-31) U/L ALT 33 H (0-31) U/L Alkaline Phosphatase 107 (39-117) U/L Troponin I High Sens < 2.7 (<3.5-17.0) ng/L Total Protein 6.5 (6.5-8.0) g/dL Albumin 3.9 (3.5-5.0) g/dL Independent Interpretation I performed an independent interpretation of an: Plain X-Ray Radiology Impression Discussion of test interpretation with radiology: I have reviewed the radiologist's reading. Radiologist Impression: On image #2 there is a subtle cortical irregularity at the mid surface of the distal radius at the wrist joint. This is likely chronic. If pain persists consider follow-up CT. No displaced fracture. No dislocation. XR/XR hand wrist RT IMPRESSION: Subtle cortical irregularity at the mid surface of the distal radius at the wrist joint. This is likely chronic. If pain persists consider follow-up CT. Discharge Plan Discharge Clinical Impression: Vasovagal near-syncope, Contusion of right wrist Patient Disposition: Home, Self-Care Instructions: Wrist Injury (ED), Near Syncope (ED) Additional Instructions: Please follow-up with your primary care physician tomorrow. If you have any worsening or new symptoms, please return to the emergency room or call 911 Prescriptions: New ibuprofen 600 mg tablet 600 mg PO Q8H PRN (Reason: fever or pain) Qty: 20 0RF No Action sucralfate 1 gram tablet 1 g PO BID Qty: 60 0RF ezetimibe 10 mg tablet 10 mg PO DAILY Qty: 90 3RF atorvastatin 80 mg tablet 80 mg PO DAILY Qty: 90 3RF metoprolol succinate 25 mg tablet extended release 24 hr 25 mg PO DAILY Qty: 90 3RF omeprazole 20 mg capsule,delayed release(DR/EC) 20 mg PO DAILY Qty: 30 0RF venlafaxine 225 mg tablet extended release 24hr 225 mg PO DAILY levothyroxine [Euthyrox] 75 mcg tablet 75 mcg PO DAILY aspirin 81 mg tablet,chewable 81 mg PO DAILY Referrals: Karina Adrian MD [Physician] - 07/13/24 Print Language: Kinyarwanda
[2024-07-12 01:31] VITALS: BP 148/62; PULSE 63; RESP 16; TEMP 36.7; O2SAT 96
== END 2024-07-12 01:30 | disposition home or self-care (01) ==
PROVIDERS: Physician Assistant Medical; Emergency Provider Emergency Medicine
DX: R55 Syncope and collapse (principal); S60.211A Contusion of right wrist, initial encounter; W18.39XA Other fall on same level, initial encounter; Y93.H1 Activity, digging, shoveling and raking; Y92.017 Garden or yard in single-family (private) house as the place of occurrence of the external cause; Y99.9 Unspecified external cause status
CPT/HCPCS: 29125; 36415; 70450; 72125; 73110; 73130; 80048; 80076; 83735; 84484; 85025; 85610; 85730; 93005; 99284; 99285

== ENCOUNTER → 2024-07-11 20:24 | Outpatient (BNV) | payer MEDICARE, SELFPAY | PROVIDERS: Emergency Provider Emergency Medicine; Visit Provider Internal Medicine | DX: R55 Syncope and collapse (principal) | CPT/HCPCS: 93010 ==

== ENCOUNTER 2024-07-14 09:58 | Outpatient (AMB) | payer MEDICARE, SELFPAY ==
[2024-07-14 10:03] VITALS: BMI 21.0
--- NOTE | 2024-07-14 10:03 | MHC.OFFVIS ---
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 Patient states she fell during a syncopal episode. Patient reports pain on the radial aspect of the right wrist that worsens with certain movements. Patient also reports her hand feels numbness, visibly swollen. Patient is taking Ibuprofen 800 mg BID PRN with relief. Denies any prior injuries or surgeries to the right hand. She continues to wear right wrist brace that was given to her at the ER. 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 She was raking leaves outside when she fell onto her right wrist. She was seen in the ED and placed in a splint. She complains of radial wrist pain, worse with motion or use of her wrist. She is concerned that her wrist is very swollen. She is taking Ibuprofen 800mg t.i.d and finds this somewhat helpful. She says she fainted briefly following her injury. She has a Hx of fainting episodes and says she was concerned she was having another heart attack. FOR[facility]LY [facility], [facility] Medical History (Reviewed 07/12/24 @ 01:[address] MD) COVID-[address] elevation (STEMI) myocardial infarction Essential hypertension Precordial chest pain Elevated BP without diagnosis of hypertension Other and unspecified hyperlipidemia Smoking Atherosclerotic cardiovascular disease Surgical History Hx of esophagogastroduodenoscopy Hx of colonoscopy H/O heart artery stent Family History Father No problems noted. Mother No problems noted. Unknown Diabetes Social History (Updated 07/14/24 @ 10:20 by KAHLIL Bonds) Alcohol intake: never Patient Tobacco Use Status: Tobacco use Unknown Years Smoked: 30 +/- Substance Use Type: Marijuana service: No Current occupational status: retired Current occupation: rt handed Review of Systems Const All systems reviewed & are unremarkable except as noted in HPI and below Physical Exam Vital Signs: BMI result Body Mass Index 21.0 Const General: cooperative, healthy appearing and no acute distress Orientation/consciousness: patient oriented x3 HEENT Head: Yes normocephalic and Yes atraumatic Eyes EOM: EOMs intact bilaterally Resp Effort & Inspection: normal respiratory effort and able to speak in complete sentences Cardio Jugular venous distension: no JVD Skin General skin exam: turgor normal Rashes: no rashes Neuro General: patient oriented x3 Extrem Other: Evaluation of Right Upper Extremity: The patient is alert, oriented, and in no acute distress Neuro: Median, Ulnar, Radial nerves motor and sensory intact and sensation is normal to the tips of all digits Vascular: Cap refill brisk ROM: She can bring her fingers closed to a fist with encouragement, and back into full extension Swelling about the right wrist extending into the hand and fingers Ecchymosis more so on the volar aspect of the distal forearm wrist extending into the palm No lacerations or evidence of open fracture. Mildly Tender over the snuffbox Most Tender over the distal radius No tenderness over the distal ulna, DRUJ feels stable DRUJ stable on exam No tenderness about the proximal forearm or elbow. Radiographs: 3 views of the right wrist were taken and viewed by me today in clinic. They show a nondisplaced intra-articular distal radius fracture. This is best seen on the radiographs from 07/11/2024. It can also be seen as an intra-articular extension that is nondisplaced on today's radiographs. She is also tender directly over this area of the distal radius. Psych Appearance: grossly normal Affect: normal affect Attitude: cooperative Office Procedures AMB Fracture Care Details: Insert fracture care [id number] Fracture Billing Code: Fracture Billing Code Assessment & Plan Assessment & Plan (1) Fracture of right distal radius: Code(s): S52.501A - Unspecified fracture of the lower end of right radius, initial encounter for closed fracture Category: Medical Plan Assessment & Plan: 1. Right distal radius fracture, nondisplaced intra-articular DOI: 07/11/24 status post fall I educated her about this condition I discussed treatment options, and recommend we manage this non-operatively. She is in agreement She was fitted for a new fiberglass volar wrist splint, with an DIAN wrap for compression, to be worn like a cast for the next 2 weeks. I discussed activity modifications, she is to lift nothing heavier than a cellphone for the next 4 weeks She should keep her wrist elevated at or above heart level when possible She will work on finger ROM exercises at home, in her splint She will follow up in 2 weeks, with X-rays, 3V R wrist + scaphoid. Anticipate placement in a short arm cast at that time for an additional 2 weeks. Scribed for Karina Adrian MD by Tres Hardy, manager medical, on 07/14/24 at 10:35 AM, EST. Orders: Orders XR wrist RT min 3V Today M25.531 - Pain in right wrist Coding Level of Care Code New Pt Level 3 (21977) Diagnoses Fracture of right distal radius S52.501A CPT Codes Fracture Care - Fracture Billing Code: Fracture Billing Code ([id number])
== END 2024-07-14 11:01 | disposition home or self-care (01) ==
LOC: HO.HOS 09:59
PROVIDERS: Visit Provider Orthopaedic Surgery
DX: S52.571A Other intraarticular fracture of lower end of right radius, initial encounter for closed fracture (principal)
CPT/HCPCS: 25600; 99203

== ENCOUNTER 2024-07-14 10:21 | Outpatient (REF) | payer MEDICARE, SELFPAY | END 2024-07-14 10:22 | disposition home or self-care (01) | LOC: HO.HOSX 10:21 | PROVIDERS: Visit Provider Orthopaedic Surgery | DX: M25.531 Pain in right wrist (principal); S52.501D Unspecified fracture of the lower end of right radius, subsequent encounter for closed fracture with routine healing | CPT/HCPCS: 25600; 73110; 99202 ==

== ENCOUNTER 2024-07-29 12:36 | Outpatient (AMB) | payer MEDICARE, SELFPAY ==
[2024-07-29 13:03] VITALS: BMI 21.0
--- NOTE | 2024-07-29 13:03 | MHC.OFFVIS ---
Vital Signs 07/29/24 13:03 Height 5 ft 6 in Weight 130 lb BMI 21.0 Intake Visit Reasons: OV- f/u Right wrist contusion-w/xrays Intake Note: Selin is a 68 yo right hand dominant female who presents today for a follow up evaluation s/p right wrist contusion, DOI 07/11/24. Patient reports she is feeling a bit better today. She mentions that she is having some soreness in her wrist. Patient is andres to make a fist. Allergies No Known Allergies Allergy (Verified 07/29/24 13:03) HPI HPI OV- f/u Right wrist contusion-w/xrays: Details: Selin is a 68 year old right hand dominant woman who returns for her right distal radius fracture, S/P fall, DOI: 07/11/24. She was raking leaves outside when she fell onto her right wrist. She complains of pain in her wrist still, but does say her pain has improved since her last appointment. SHe has been working on finger ROM exercises and she says she is able to make a fist She says she fainted briefly following her injury. She has a Hx of fainting episodes and says she was concerned she was having another heart attack. She says she has been well since her last appointment [facility] Medical History (Reviewed 07/12/24 @ 01:[address] MD) COVID-[address] elevation (STEMI) myocardial infarction Essential hypertension Precordial chest pain Elevated BP without diagnosis of hypertension Other and unspecified hyperlipidemia Smoking Atherosclerotic cardiovascular disease Surgical History Hx of esophagogastroduodenoscopy Hx of colonoscopy H/O heart artery stent Family History Father No problems noted. Mother No problems noted. Unknown Diabetes Social History (Updated 07/14/24 @ 10:20 by KAHLIL Bonds) Alcohol intake: never Patient Tobacco Use Status: Tobacco use Unknown Years Smoked: 30 +/- Substance Use Type: Marijuana service: No Current occupational status: retired Current occupation: rt handed Physical Exam Vital Signs: BMI result Body Mass Index 21.0 Extrem Other: Evaluation of Right Upper Extremity: The patient is alert, oriented, and in no acute distress Neuro: Median, Ulnar, Radial nerves motor and sensory intact and sensation is normal to the tips of all digits Vascular: Cap refill brisk ROM: She can bring her fingers closed to a fist with encouragement, and back into full extension Her swelling about the right wrist extending into the hand and fingers has now completely resolved Improving ecchymosis more so on the volar aspect of the distal forearm wrist extending into the palm No tenderness over the snuffbox or scaphoid tubercle Most Tender over the distal radius No tenderness over the distal ulna, DRUJ feels stable DRUJ stable on exam No tenderness about the proximal forearm or elbow. Radiographs: 3 views of the right wrist plus a scaphoid view were taken and viewed by me today in clinic. They show a nondisplaced intra-articular distal radius fracture. It can also be seen as an intra-articular extension that is nondisplaced on today's radiographs. She is also tender directly over this area of the distal radius. Assessment & Plan Assessment & Plan (1) Fracture of right distal radius: Code(s): S52.501A - Unspecified fracture of the lower end of right radius, initial encounter for closed fracture Category: Medical Plan Assessment & Plan: 1. Right distal radius fracture, nondisplaced intra-articular S/P fall, DOI: 07/11/24 I educated her about this condition She is doing well. She was placed in a short arm cast to be worn for the next 2 weeks I explained the effects of smoking on wound/bone healing, and recommend they stop smoking while healing. They expressed understanding I discussed activity modifications, she is to lift nothing heavier than a cellphone for the next 2 weeks She should keep her wrist elevated at or above heart level when possible She will work on finger ROM exercises at home She will follow up in 2 weeks, for edpsn-pq-wmsgig check. Radiographs necessary only if she sustained a new injury. . Scribed for Karina Adrian MD by Tres Hardy, biomedical engineering technician, on 07/29/24 at 1:40 PM, EST. Orders: Orders XR wrist RT w scaphoid Today M25.531 - Pain in right wrist Coding Level of Care Code Global (38606) Diagnoses Fracture of right distal radius S52.501A
== END 2024-07-29 14:15 | disposition home or self-care (01) ==
PROVIDERS: Visit Provider Orthopaedic Surgery
DX: S52.501A Unspecified fracture of the lower end of right radius, initial encounter for closed fracture (principal)
CPT/HCPCS: 99024

== ENCOUNTER 2024-07-29 12:36 | Outpatient (REF) | payer MEDICARE, SELFPAY ==
--- NOTE | ~2024-07-29 | XR_ITS ---
EXAMINATION: XR RIGHT WRIST CLINICAL INFORMATION: Pain in right wrist M25.531. COMPARISON: XR Right wrist 07/14/2024 TECHNIQUE: PA, lateral, and oblique views of the right wrist. FINDINGS: Diffuse demineralization. Moderate degenerative changes in the first carpometacarpal joint with joint space narrowing and hypertrophic change. XR/XR wrist RT w scaphoid IMPRESSION: 1. Moderate degenerative changes first carpometacarpal joint. Electronically signed by: Laura South MD 09/22/2024 01:21 PM DINA QUINTERO
== END 2024-07-29 12:37 | disposition home or self-care (01) ==
LOC: HO.HOSX 12:36
PROVIDERS: Visit Provider Orthopaedic Surgery
DX: S52.501A Unspecified fracture of the lower end of right radius, initial encounter for closed fracture (principal)
CPT/HCPCS: 73110; 99212

== ENCOUNTER 2024-08-11 13:29 | Outpatient (AMB) | payer MEDICARE, SELFPAY ==
--- NOTE | 2024-08-11 13:40 | A.OFFVIS_ITS ---
Vital Signs 08/11/24 13:41 Height 5 ft 6 in Weight 130 lb BMI 21.0 Intake Visit Reasons: OV- f/u Right wrist contusion-w/xrays Intake Note: Selin is a 68 yo right hand dominant female who presents today for a follow up visit s/p right wrist contusion, DOI 07/11/24. Cast removed in office. Denies any re-injury to her hand. No pain just mild aches and stiffness due to being in cast. States she has been working her fingers ROM and is doing well. Allergies No Known Allergies Allergy (Verified 08/11/24 13:43) HPI HPI OV- f/u Right wrist contusion-w/xrays: Details: Selin is a 68 year old right hand dominant woman who returns for her right distal radius fracture, S/P fall, DOI: 07/11/24. She was raking leaves outside when she fell onto her right wrist. She says she is doing well. She complains of some achiness & stiffness once her cast was removed, but says overall her pain is better. She has been working on finger ROM exercises while in her cast. She says she has been well since her last appointment [facility] Medical History COVID-[address] elevation (STEMI) myocardial infarction Essential hypertension Precordial chest pain Elevated BP without diagnosis of hypertension Other and unspecified hyperlipidemia Smoking Atherosclerotic cardiovascular disease Surgical History Hx of esophagogastroduodenoscopy Hx of colonoscopy H/O heart artery stent Family History Father No problems noted. Mother No problems noted. Unknown Diabetes Social History (Updated 07/14/24 @ 10:20 by KAHLIL Bonds) Alcohol intake: never Patient Tobacco Use Status: Tobacco use Unknown Years Smoked: 30 +/- Substance Use Type: Marijuana service: No Current occupational status: retired Current occupation: rt handed Physical Exam Vital Signs: BMI result Body Mass Index 21.0 Extrem Other: Evaluation of Right Upper Extremity: The patient is alert, oriented, and in no acute distress Neuro: Median, Ulnar, Radial nerves motor and sensory intact and sensation is normal to the tips of all digits Vascular: Cap refill brisk ROM: She can bring her fingers closed to a fist with encouragement, and back into full extension Symmetrical pronosupination Wrist flexion: 30 degrees Wrist extension: 40 degrees No tenderness over the fracture site DRUJ stable Assessment & Plan Assessment & Plan (1) Fracture of right distal radius: Code(s): S52.501A - Unspecified fracture of the lower end of right radius, initial encounter for closed fracture Category: Medical Plan Assessment & Plan: 1. Right distal radius fracture, nondisplaced intra-articular S/P fall, DOI: 07/11/24 I educated her about this condition She is doing well. She was fitted for a velcro wrist splint, to be worn with daily activities & out of the house for the next 3 weeks. She should remove this when at home. She shoulder discontinue her splint in 3 weeks, unless there is snow or ice on the ground. I explained the effects of smoking on wound/bone healing, and recommend they stop smoking while healing. They expressed understanding I discussed activity modifications, she is to work on lifting lightweight objects and slowly increase her weight limit as tolerated over the next 4-6 weeks She will work on ROM exercises at home, out of her splint If she has difficulty over the next few weeks, she can contact the clinic for a referral to OT hand therapy She will follow up prn . Scribed for Karina Adrian MD by Tres Hardy, nurses medical assistants phlebotomists, on 08/11/24 at 1:50 PM, EST. Coding Level of Care Code Global (51991) Diagnoses Fracture of right distal radius S52.501A
[2024-08-11 13:41] VITALS: BMI 21.0
--- OUTSIDE RECORDS SUMMARY | 2024-08-18 14:29 | XMS_ITS | Continuity of Care Document ---
Author Organization [facility] lt Address [address] [place] [address]- Care Team Providers Care Power Tong Operator Name Role Phone Lian GONCALVES, Lisandro Chow Primary Care Physician [phone] [place] [facility] [place](s): 07/13/24 - 08/12/24 [facility] [address] [place] [address]- Encounter Type: Triage Allergies, Adverse Reactions, Alerts No Known Allergies Immunizations Given and Recorded Vaccine Date Status Refusal Reason influenza virus vaccine, inactivated 07/23/23 Give n influenza virus vaccine, inactivated 07/20/21 Give n influenza virus vaccine, inactivated 06/28/20 Cirilo rded influenza virus vaccine, inactivated 06/11/19 Give n influenza virus vaccine, inactivated 1 08/08/18 Gi ursula influenza virus vaccine, inactivated 06/06/17 Cirilo rded influenza virus vaccine, inactivated 07/04/16 Cirilo rded influenza virus vaccine, inactivated 06/27/14 Give n influenza virus vaccine, inactivated 06/27/12 Cirilo rded influenza virus vaccine, inactivated 06/28/11 Cirilo rded influenza virus vaccine, inactivated 05/16/10 Cirilo rded SARS-CoV-2 mRNA ([id number]) vax 08/20/22 Recorded SARS-CoV-2 mRNA ([id number]) vax 10/30/21 Recorded SARS-CoV-2 (COVID-19) mRNA BNT-162b2 vac 12/17/20 Given SARS-CoV-2 (COVID-19) mRNA BNT-162b2 vac 12/17/20 Recorded SARS-CoV-2 (COVID-19) mRNA BNT-162b2 vac 11/26/20 Given SARS-CoV-2 (COVID-19) mRNA BNT-162b2 vac 11/26/20 Recorded tetanus/diphtheria/pertussis, acel(Tdap) 2 02/06/18 Given tetanus/diphtheria/pertussis, acel(Tdap) 06/18/08 Recorded pneumococcal 23-valent vaccine 06/27/14 Given 1Result Comment: [08/08/2018] [facility] [id number] 2Result Comment: [02/06/2018] [facility] [id number] Medications aspirin 81 mg oral tablet, chewable = 81 mg, By Mouth, Daily, # 30 tablet, 11 Refills, Maintenance, 08/28/14 8:36:26 AM EST, Chew Tablet, [facility] Start Date: 08/28/14 Stop Date: 08/23/15 Status: Ordered Quantity: 30.0 Unit: tablet Repeat number: 12 atorvastatin 80 mg oral tablet = 80 mg, By Mouth, Daily at bedtime, # 30 tablet, 11 Refills, Maintenance, 08/28/14 8:37:15 AM EST,Tablet, [facility] Start Date: 08/28/14 Stop Date: 08/23/15 Status: Ordered Quantity: 30.0 Unit: tablet Repeat number: 12 ezetimibe 10 mg oral tablet 1 tablet = 10 mg, By Mouth, Daily, # 30 tablet, 0 Refills, Maintenance, 09/29/20 1:37:00 PM EST, Tablet, Partial fill upon patient request if the prescription is for a schedule II opioid drug. Start Date: 09/29/20 Status: Ordered Quantity: 30.0 Unit: tablet Repeat number: 1 levothyroxine 0.05 mg oral tablet 1 tablet, By Mouth, Daily, # 90 tablet, 1 Refills, Maintenance, 06/22/24 2:36:00 PM EDT, [facility], 167.64, cm, 01/30/24 10:43:00 EDT, Height Start Date: 06/22/24 Status: Ordered Quantity: 90.0 Unit: tablet Repeat number: 1 metoprolol 25 mg oral tablet, extended release 25 mg, 1, tablet, By Mouth, Daily, SUCCINATE, # 30 tablet, Refills 0, Maintenance, 01/20/18 9:58:51 AM EDT Start Date: 01/20/18 Status: Ordered Quantity: 30.0 Unit: tablet Repeat number: 1 omeprazole 20 mg oral enteric coated capsule 1 capsule, By Mouth, Daily, # 30 capsule, 5 Refills, Maintenance, 06/24/23 11:07:00 PM EDT, [facility], 167.64, cm, 01/18/23 13:45:00 EDT, Height Start Date: 06/24/23 Status: Ordered Quantity: 30.0 Unit: capsule Repeat number: 1 venlafaxine 150 mg oral capsule, extended release 150 mg, 1, capsule, By Mouth, Daily, # 90 capsule, Refills 3, Tot. Refills 3, Maintenance, 01/30/24 11:02:00 AM EDT, Route to Pharmacy Electronically, [facility], Partial fill upon patient request if the prescription is for a schedule II opioid drug., 167.64, cm, 01/30/24 10:43:00 EDT, Height Start Date: 01/30/24 Status: Ordered Quantity: 90.0 Unit: capsule Repeat number: 4 Vitamin D3 1000 intl units oral capsule 1 capsule = 1,000 International_Units, By Mouth, Daily, # 100 capsule, 0 Refills, Maintenance, 01/20/18 9:58:17 AM EDT, Capsule Start Date: 01/20/18 Status: Ordered Quantity: 100.0 Unit: capsule Repeat number: 1 zolpidem 5 mg oral tablet 1 tablet = 5 mg, By Mouth, Daily at bedtime, # 30 tablet, 2 Refills, Maintenance, 04/08/24 10:59:00 AM EDT, [facility], Partial fill upon patient request if the prescription is for aschedule II opioid drug., 167.64, cm, 01/30/24 10:43:00 EDT, Height Start Date: 04/08/24 Status: Ordered Quantity: 30.0 Unit: tablet Repeat number: 3 zolpidem 5 mg oral tablet 1 tablet = 5 mg, By Mouth, Daily at bedtime, # 30 tablet, 2 Refills, Maintenance, 09/11/23 12:19:00 PM EST, [facility], Partial fill upon patient request if the prescription is for a schedule II opioid drug., 167.64, cm, 07/23/23 11:20:00 EST, Height Start Date: 09/11/23 Status: Ordered Quantity: 30.0 Unit: tablet Repeat number: 3 zolpidem 5 mg oral tablet 1 tablet = 5 mg, By Mouth, Daily at bedtime, # 30 tablet, 1 Refills, Maintenance, 01/30/24 11:17:00 AM EDT, Partial fill upon patient request if the prescription is for a schedule II opioid drug. Start Date: 01/30/24 Status: Ordered Quantity: 30.0 Unit: tablet Repeat number: 2 zolpidem 5 mg oral tablet 1 tablet = 5 mg, By Mouth, Daily at bedtime, # 30 tablet, 1 Refills, Maintenance, 01/30/24 11:19:00 AM EDT, [facility], Partial fill upon patient request if the prescription is for aschedule II opioid drug., 167.64, cm, 01/30/24 10:43:00 EDT, Height Start Date: 01/30/24 Status: Ordered Quantity: 30.0 Unit: tablet Repeat number: 2 zolpidem 5 mg oral tablet 1 tablet = 5 mg, By Mouth, Daily at bedtime, # 30 tablet, 2 Refills, Maintenance, 07/14/24 12:11:00 PM EST, [facility], Partial fill upon patient request if the prescription is for aschedule II opioid drug., 167.64, cm, 01/30/24 10:43:00 EDT, Height Start Date: 07/14/24 Status: Ordered Quantity: 30.0 Unit: tablet Repeat number: 3 Problem List Condition Confirmation Course Effective Dates Status H ealth Status Informant AMI (acute myocardial infarction) Confirmed Active Coronary artery disease Confirmed Active Depression Confirmed Active Hyperlipidemia Confirmed Active Hypertension Confirmed Active Hypothyroidism Confirmed Active Impaired fasting glucose Confirmed Active Insomnia Confirmed Active Squamous papilloma Confirmed Active Stented coronary artery Confirmed Active Tobacco use Confirmed Active Social History Social History Type Response Smoking Status Current every day sm oker; Tobacco user in household: Yes; Type: Cigarettes; Previous treatment: None; Interested in cessation: Yes entered on: 01/20/18 Sex Sex Representation Female (finding) Patient Care team information Care Team Personnel Name: Lisandro Beal MD Position: S Physician - Primary Care Member Role: PCP Address: [address] [place] [address]- [place] Telecom: Care Team Related Persons Name: ASHLI RODRIGUEZ Name: DOMITILA TYSON Insurance Providers Guarantor name: YANG TYSON Health Plan Information #: 1 Payer: MEDICARE PART B OUTPT Member Number: NA Policy Number: NA Group Number: NA
== END 2024-08-11 13:55 | disposition home or self-care (01) ==
PROVIDERS: Visit Provider Orthopaedic Surgery
DX: S52.501A Unspecified fracture of the lower end of right radius, initial encounter for closed fracture (principal)
CPT/HCPCS: 99024

== ENCOUNTER → 2024-08-11 13:29 | Outpatient (BNVA) | payer MEDICARE, SELFPAY | PROVIDERS: Visit Provider Orthopaedic Surgery | DX: S52.501D Unspecified fracture of the lower end of right radius, subsequent encounter for closed fracture with routine healing (principal); W19.XXXD Unspecified fall, subsequent encounter | CPT/HCPCS: 99212 ==

== ENCOUNTER 2025-01-14 12:34 | Outpatient (AMB) | payer MEDICARE, SELFPAY ==
--- NOTE | 2025-01-14 12:41 | A.OFFVIS_ITS ---
Vital Signs 01/14/25 12:42 Height 5 ft 6 in Weight 123 lb 7.342 oz BMI 19.9 BP 140/68 H Blood Pressure Location Lt brachial Position Sitting Pulse 78 Pulse Source Pulse Oximeter Intake Visit Reasons: 1 yr f /up Allergies No Known Allergies Allergy (Verified 08/11/24 13:43) Medication List - Last Reconciled 01/14/25 by Juan Jose Jones MD aspirin 81 mg PO DAILY atorvastatin 80 mg PO DAILY ezetimibe 10 mg PO DAILY ibuprofen 600 mg PO Q8H PRN levothyroxine 50 mcg PO DAILY metoprolol succinate ER 25 mg PO DAILY venlafaxine ER 150 mg PO DAILY zolpidem 5 mg PO BEDTIME PRN HPI Comments Details: Selin returns for follow-up regarding coronary artery disease. To recall, she had ST-elevation myocardial infarction 2013. She had catheterization and had LAD stenting. EF at that time was 35%, but subsequently normalized. In 2022, she had shortness of breath and workup showed severe anemia. She had transfusions as well as GI workup. Since that time, no new concerns. She states she feels well. No cardiac complaints whatsoever. [facility] Medical History COVID-[address] elevation (STEMI) myocardial infarction Essential hypertension Precordial chest pain Elevated BP without diagnosis of hypertension Other and unspecified hyperlipidemia Smoking Atherosclerotic cardiovascular disease Surgical History Hx of esophagogastroduodenoscopy Hx of colonoscopy H/O heart artery stent Family History Father No problems noted. Mother No problems noted. Unknown Diabetes Social History (Updated 07/14/24 @ 10:20 by KAHLIL Bonds) Alcohol intake: never Patient Tobacco Use Status: Tobacco use Unknown Years Smoked: 30 +/- Substance Use Type: Marijuana service: No Current occupational status: retired Current occupation: rt handed Review of Systems Const Denies weakness ENT Denies dizziness Card Denies chest pain, Denies chest pain with activity, Denies syncope, Denies rapid heart rate, Denies pedal edema, Denies edema, Denies leg edema, Denies lightheadedness, Denies palpitations, Denies dyspnea, Denies dyspnea on exertion and Denies orthopnea Resp Denies cough, Denies dyspnea and Denies dyspnea on exertion GI Denies hematochezia and Denies change in stool character Musc Denies abnormal gait, Denies muscle cramps, Denies muscle weakness, Denies numbness, Denies radiating pain into limb and Denies tingling Neuro Denies abnormal gait, Denies dizziness, Denies syncope, Denies numbness, Denies tingling and Denies weakness Endo Denies palpitations Physical Exam Vital Signs: Last Vital Signs Pulse 78 01/14/25 12:42 BP 140/68 H 01/14/25 12:42 BMI result Body Mass Index 19.9 Const General: comfortable and no acute distress Orientation/consciousness: patient oriented x3 HEENT Other: Unremarkable Head: Yes normal to inspection Neck Neck: Yes normal visual inspection Chest Chest palpation & inspection: normal inspection of the chest Resp Auscultation: clear to auscultation bilaterally Cardio Palpation: normal PMI Heart sounds: S1 normal heart sound present, S2 normal heart sound present, no gallops, no murmurs and no rubs GI Palpation (GI): Soft to palpation Back/Spine/Pelvis Other: unremarkable Skin General skin exam: no rashes or lesions noted Neuro General: patient oriented x3 Extrem General: Yes normal to inspection Psych Mental Status: mental status grossly normal Assessment & Plan Assessment & Plan (1) Atherosclerotic cardiovascular disease: Code(s): I25.10 - Atherosclerotic heart disease of [place] coronary artery without angina pectoris Category: Medical (2) Essential hypertension: Code(s): I10 - Essential (primary) hypertension Category: Medical (3) Other and unspecified hyperlipidemia: Code(s): E78.5 - Hyperlipidemia, unspecified Category: Medical (4) Smoking: Code(s): F17.200 - Nicotine dependence, unspecified, uncomplicated Category: Social Hx (5) Anemia: Code(s): D64.9 - Anemia, unspecified Category: Medical Qualifiers: Anemia type: iron deficiency Iron deficiency anemia type: chronic blood loss Qualified Code(s): D50.0 - Iron deficiency anemia secondary to blood loss (chronic) Plan Cardiac catheterization 2013- s/p LAD PCI; She had no significant disease in left main or circumflex. Intermediate grade lesion in mid right coronary artery. Echocardiogram 2021 with LVEF 57%; moderate diastolic dysfunction; basal inferior/inferoseptal hypokinesis. Mild mitral and aortic calcification. Myocardial perfusion imaging 2021 with mild reversible inferior defect thought to be from diaphragmatic attenuation artifact and less likely ischemia. Clinically, she is quite stable without any angina or any other concerning symptoms. She may continue her aspirin, beta-blockers, statins/ Zetia. Last LDL cholesterol 67 mg/dL. Triglycerides 97 mg/dL. With regard to smoking, again discussed but unclear if she is going to quit. We will follow up in one year. In the interim, she will call us with any ongoing concerns. Discussion Notes During the consultation, we discussed the patient's smoking habits, highlighting the continued health risks associated with nicotine regardless of the cigarette type. I recommended smoking cessation and emphasized the benefits of quitting. Concerning her anemia, we noted her previous condition. In terms of exercise, she is engaging in household activities such as weed whacking without respiratory difficulty, which supports her overall good health status. I instructed the patient to remain alert to any cardiovascular or respiratory issues and assured her she should return for further assessment if necessary. No further diagnostic studies or procedures were planned for during this visit. Patient was informed and verbally consented to the use of an ambient scribe for clinic note documentation during this visit. Patient Instructions: - Continue to work toward smoking cessation; consider seeking support if necessary. - Monitor for any symptoms like chest pain or breathing difficulties, and report these immediately. - Follow up as notified for any updates regarding anemia testing or overall health status. - Maintain current activity level as tolerated, being mindful of any discomfort. - Report any new or worsening symptoms to me promptly. - Ensure to visit us if there is any change in your general health condition. Coding Level of Care Code Est Pt Level 4 (91035) Diagnoses Atherosclerotic cardiovascular disease I25.10 Essential hypertension I10 Other and unspecified hyperlipidemia E78.5 Smoking F17.200 Iron deficiency anemia due to chronic blood loss D50.0 Anemia type: iron deficiency Iron deficiency anemia type: chronic blood loss
[2025-01-14 12:42] VITALS: BP 140/68; PULSE 78; BMI 19.9
== END 2025-01-14 12:53 | disposition home or self-care (01) ==
LOC: HO.HCS 12:35
PROVIDERS: PCP Internal Medicine; Visit Provider Internal Medicine
DX: I25.10 Atherosclerotic heart disease of native coronary artery without angina pectoris (principal); I10 Essential (primary) hypertension; E78.5 Hyperlipidemia, unspecified; F17.200 Nicotine dependence, unspecified, uncomplicated; D50.0 Iron deficiency anemia secondary to blood loss (chronic)
CPT/HCPCS: 99214

== ENCOUNTER → 2025-01-14 12:34 | Outpatient (BNVA) | payer MEDICARE, SELFPAY | PROVIDERS: PCP Internal Medicine; Visit Provider Internal Medicine | DX: I25.10 Atherosclerotic heart disease of native coronary artery without angina pectoris (principal); I10 Essential (primary) hypertension; E78.5 Hyperlipidemia, unspecified; D50.0 Iron deficiency anemia secondary to blood loss (chronic); F17.200 Nicotine dependence, unspecified, uncomplicated | CPT/HCPCS: 99212 ==